=== PATIENT | female | born 1990 | race Caucasian/White ===

== ENCOUNTER 2023-06-14 19:42 | Outpatient (OUT) | payer OTHER, SELFPAY ==
--- NOTE | 2023-06-14 | XR_ITS ---
The [address] [address] Patient Name: MIKAEL LEHMAN MRN: [id number] date: 1990 Sex: F Assigned Patient Location: [facility] Current Patient Location: [facility] Accession/Order Number: [id number] Exam Date: 06/14/2023 20:00 Report Date: 06/14/2023 20:56 At the request of: MICHELLE MAYA Procedure: XR chest 2V TWO-VIEW CHEST RADIOGRAPH, 06/14/2023 8:00 PM EDT: COMPARISON: Chest, 07/19/2022. CLINICAL HISTORY: R05.9 acute cough for a month. Productive cough and wheezing and dyspnea. Patient has been placed on antibiotics/steroids with no relief. FINDINGS: No acute cardiopulmonary disease. No pulmonary edema, pneumothorax, or pleural effusion. Normal heart size. No acute osseous abnormality. XR/XR chest 2V IMPRESSION: No acute abnormality identified. Electronically authenticated by: Emery ESCOBEDO Date: 06/14/2023 20:56
== END 2023-06-14 19:43 | disposition home or self-care (01) ==
PROVIDERS: PCP Family Medicine; Visit Provider Family Medicine
DX: R05.9 Cough, unspecified (principal)
CPT/HCPCS: 71046

== ENCOUNTER 2025-05-08 18:05 | Outpatient (OUT) | payer OTHER, SELFPAY ==
--- NOTE | 2025-05-08 18:13 | XR_ITS ---
The [address] [address] Patient Name: MIKAEL LEHMAN MRN: [id number] date: 1990 Sex: F Assigned Patient Location: [facility] Current Patient Location: [facility] Accession/Order Number: [id number] Exam Date: 05/08/2025 21:41 Report Date: 05/08/2025 21:43 At the request of: ALLI OCAMPO MD Procedure: XR abdomen 1V Single view abdomen INDICATION: Kidney stones COMPARISON: None FINDINGS: There are radiopaque calcific densities both kidneys noted on the right 3 mm size on the left 4 mm and 2 mm in size. Calcific density more medial to left kidney noted 6 mm in size noted this could be within a left renal pelvis, difficult to ascertain on x-ray. Otherwise no additional calcific densities overlying the renal shadows or the psoas muscle. Spina bifida occulta lumbosacral junction. Bilateral pelvic phleboliths. Minimal sclerosis sacroiliac joints greatest right. No diastases noted. XR/XR abdomen 1V IMPRESSION: Bilateral nephrolithiasis. Questionable left calculus projecting within the region of the expected location left renal pelvis. Impression dictated by: Nik Lebron M.D. 05/08/2025 9:43 PM Dictation Location: [place] [address] Electronically authenticated by: [id number] Y Date: 05/08/2025 21:43
== END 2025-05-08 18:06 | disposition home or self-care (01) ==
PROVIDERS: PCP Family Medicine; Visit Provider Urology
DX: N20.0 Calculus of kidney (principal)
CPT/HCPCS: 74018

== ENCOUNTER 2025-05-13 08:53 | Outpatient (OUT) | payer OTHER, SELFPAY ==
--- NOTE | 2025-05-13 08:59 | XR_ITS ---
The [address] [address] Patient Name: MIKAEL LEHMAN MRN: [id number] date: 1990 Sex: F Assigned Patient Location: [facility] Current Patient Location: [facility] Accession/Order Number: [id number] Exam Date: 05/13/2025 11:07 Report Date: 05/13/2025 11:08 At the request of: ALLI OCAMPO MD Procedure: XR abdomen 1V KUB: CLINICAL INFORMATION: Kidney stone follow-up COMPARISON: KUB 05/08/2025 FINDINGS: Bilateral nephrolithiasis once again demonstrated large stone measuring 4 mm involving the inferior pole the left kidney. 6 mm stone over the expected location of the left renal pelvis similar to the prior study. Phleboliths are seen within the pelvis. No free air. No bowel obstruction. XR/XR abdomen 1V IMPRESSION: NO SIGNIFICANT CHANGE IN STONE FINDINGS. Impression dictated by: Ha Jones Jr., D.O. 05/13/2025 11:08 AM Dictation Location: [place] [address] Electronically authenticated by: [id number] Y Date: 05/13/2025 11:08
== END 2025-05-13 08:54 | disposition home or self-care (01) ==
PROVIDERS: PCP Family Medicine; Visit Provider Urology
DX: N13.2 Hydronephrosis with renal and ureteral calculous obstruction (principal)
CPT/HCPCS: 74018

== ENCOUNTER 2025-05-17 08:01 | Outpatient (OUT) | payer OTHER, SELFPAY ==
--- NOTE | 2025-05-17 08:43 | ECG_ITS ---
The [facility] Test Date: 2025-05-17 Pat Name: MIKAEL LEHMAN Department: Room: - Gender: Female Office Bookkeeper: : 1990 Requested By: ALLI OCAMPO Order Number: [id number] Reading MD: ALBERTO LONG M.D. Measurements Intervals [place] Rate: 73 P: 1 ND: 145 QRS: 18 QRSD: 104 T: 14 QT: 357 QTc: 395 Interpretive Statements SINUS RHYTHM Normal ECG No previous ECG available for comparison Electronically Signed On 05-17-2025 20:49:44 EDT by ALBERTO LONG M.D.
[2025-05-17 09:28] LABS: INR 1.14; Partial Thromboplastin Time 28.8 sec (22.3-36.2); Prothrombin Time 11.9 sec (9.0-11.6)
== END 2025-05-17 08:02 | disposition home or self-care (01) ==
LOC: PST 08:04
PROVIDERS: PCP Family Medicine; Visit Provider Urology
DX: Z01.810 Encounter for preprocedural cardiovascular examination (principal); Z01.812 Encounter for preprocedural laboratory examination; N20.1 Calculus of ureter
CPT/HCPCS: 85610; 85730; 93005

== ENCOUNTER 2025-05-23 03:01 | Emergency (ER) | payer OTHER, SELFPAY ==
--- OUTSIDE RECORDS SUMMARY | 2025-04-19 12:00 | XMS_ITS ---
Author Organization [facility] Serv[facility] es Address [address] [place] [address] Care Team Providers Care Pump Servicer Name Role Phone Karlie Flores Primary Care Provider Alejandra Mathews [phone] REASON FOR VISIT 1 month f/u virtual Healow Encounters Encounter Location Date Provider Diagnosis [facility] [address] [place] [address] 04/19/2025 Alejandra Mathews Plan Of Treatment Next Appt Details Provider Name:Karlie payan, 05/23/2025 08:30:00 AM, [address] [place], [address], Progress Notes * MARLEN LEHMANB:1990 (34 yo F)Acc No.[id number]:04/19/2025 Behavioral Health Patient: MIKAEL GONZÁLES Appointment Provider: Mildred Mathews :1990 A ge:34 Y S ex:Female Date:04/19/2025 Address:[address] [place], [place] [id number] Pcp:Karlie Flores Subjective: * Chief Complaints: * 1 . 1 month f/u virtual Healow. * Medical History: Objective: * Vitals: Assessment: Plan: * Treatment: * Images: * Electronic signature of BALAJI Piper on 05/23/2025 at 03:07 AM EDT Sign off status: Pending * Appointment Provider: Mildred Mathews Date: 0 04/19/2025 Generated for Jesus ortega/Diana/Keny on: 0 05/23/2025 03:07 AM EDT
--- OUTSIDE RECORDS SUMMARY | 2025-04-29 04:15 | XMS_ITS ---
Author Organization [facility] Serv[facility] es Address [address] [place] [address] Care Team Providers Care Industrial Laborer Name Role Phone Karlie Flores Primary Care Provider [phone] REASON FOR VISIT MYKEL from Maninder Mathews Encounters Encounter Location Date Provider Diagnosis [facility] [address] [place] [address] 04/29/2025 Karlie Flores Plan Of Treatment Next Appt Details Provider Name:Karlie Sevilla er, 05/23/2025 08:30:00 AM, [facility] [place], [address], Progress Notes * MARLEN LEHMANB:1990 (34 yo F)Acc No.[id number]:04/29/2025 Behavioral Health Patient: MIKAEL GONZÁLES Provider: Coral Flores :1990 A ge:34 Y S ex:Female Date:04/29/2025 Address:[address] [place], [place] [phone] Subjective: * Chief Complaints: * 1 . MYKEL from Maninder Mathews. * Medical History: Objective: * Vitals: Assessment: Plan: * Treatment: * Images: * Electronic signature of BALAJI La on 05/23/2025 at 03:06 AM EDT Sign off status: Pending * Provider: Coral Flores Date: 0 04/29/2025 Generated for Jesus ortega/Diana/Keny on: 0 05/23/2025 03:06 AM EDT
--- OUTSIDE RECORDS SUMMARY | 2025-05-09 23:59 | XMS_ITS | Continuity of Care Document ---
Author Organization [facility] Address [address] [place] [address] Care Team Providers Care Silk Screen Layout Drafter Name Role Phone Sathya Herron Primary Care Physician [phone] Encounter FT_ENRICO [id number] Date(s): 05/09/25 - 05/09/25 [facility] [address] [place] [address] [place] Encounter Diagnosis Kidney stone(Discharge Diagnosis) - 05/09/25 Ureteral stone with hydronephrosis(Discharge Diagnosis) - 05/09/25 Discharge Disposition: Home (Routine DC) Attending Physician: Houston OCAMPO MD Encounter Type: Clinic Allergies, Adverse Reactions, Alerts Substance Criticality Severity Reaction Reaction Severity Status sulfa drugs hives Active Medications acetaminophen-oxycodone 325 mg-5 mg Tab TAKE 1 TABLET BY MOUTH EVERY 8 HOURS NEEDED FOR PAIN FOR 3 DAYS Start Date: 05/09/25 Status: Ordered Repeat number: 1 amphetamine-dextroamphetamine 20 mg Cap-ER TAKE 1 CAPSULE BY MOUTH EVERY DAY IN THE MORNING FOR 30 DAYS Start Date: 05/09/25 Status: Ordered Repeat number: 1 cephalexin 500 mg Cap TAKE 1 CAPSULE BY MOUTH TWICE A DAY FOR 7 DAYS Start Date: 05/09/25 Status: Ordered Repeat number: 1 ClonazePAM 0.5 mg Tab TAKE 1 TABLET BY MOUTH AT BEDTIME DAILY, MAY TAKE 1 DURING DAY NEEDED FOR ANXIETY DIRECTED Start Date: 05/09/25 Status: Ordered Repeat number: 1 ketorolac 10 mg Tab 10 mg = 1 tab(s), Oral, q12hr, Take as needed for pain., X 5 day(s), # 10 tab(s), Refills(s) 0, Pharmacy: [facility]/pharmacy #[id number], 170, cm, 05/09/25 15:08:00 EDT, Height/Length Dosing, 121.4, kg, 05/09/2515:08:00 EDT, Weight Dosing Start Date: 05/09/25 Stop Date: 05/14/25 Status: Ordered Quantity: 10.0 Unit: tab(s) Repeat number: 1 lamotrigine 200 mg Tab TAKE 1 TABLET BY MOUTH EVERY DAY FOR 30 DAYS Start Date: 05/09/25 Status: Ordered Repeat number: 1 Pepcid 20 mg Tab 20 mg = 1 tab(s), Oral, BID, # 60 tab(s), Refills(s) 0 Start Date: 04/11/20 Status: Ordered Quantity: 60.0 Unit: tab(s) Repeat number: 1 propranolol 60 mg oral tablet TAKE 1 TABLET BY MOUTH TWICE A DAY NEEDED FOR 30 DAYS Start Date: 05/09/25 Status: Ordered Repeat number: 1 quetiapine 25 mg Tab TAKE 1 TABLET BY MOUTH EVERY DAY AT BEDTIME FOR 90 DAYS Start Date: 05/09/25 Status: Ordered Repeat number: 1 ropinirole 4 mg oral tablet TAKE 2 TABLETS BY MOUTH DAILY AT BEDTIME Start Date: 05/09/25 Status: Ordered Repeat number: 1 tamsulosin 0.4 mg Cap TAKE 1 CAPSULE BY MOUTH EVERY DAY FOR 7 DAYS Start Date: 05/09/25 Status: Ordered Repeat number: 1 tirzepatide SubCutaneous, qWeek, Refills(s) 0 Start Date: 05/09/25 Status: Ordered Repeat number: 1 Problem List Condition Confirmation Course Effective Dates Status H ealth Status Informant Generalised anxiety disorder Confirmed Active Mild recurrent major depression Confirmed Active Ureteral stone with hydronephrosis Confirmed Active Procedures Procedure Date Related Diagnosis Body Site Status delivery 02/22/20 Complet ed Lithotripsy 10/03/16 Completed Urethral stent 10/03/16 Completed Social History Social History Type Response Smoking Status Never (less than 100 in lifetime);Never entered on: 06/18/20 Sex Female Sex Representation Female (finding) Hospital Discharge Instructions Patient Education 05/09/2025 15:44:25 Kidney Stones Kidney Stones Kidney stones are solid, rock-like deposits that form inside of the kidneys. The kidneys are a pairof organs that make urine. A kidney stone may form in a kidney and move into other parts of the urinary tract, including the tubes that connect the kidneys to the bladder (ureters), the bladder, and the tube that carries urine out of the body (urethra). As the stone moves through these areas, it can cause intense pain and block the flow of urine. Kidney stones are created when high levels of certain minerals are found in the urine. The stones are usually passed out of the body through urination, but in some cases, medical treatment may be needed to remove them. What are the causes? Kidney stones may be caused by: ??? A condition in which certain glands produce too much parathyroid hormone (primary hyperparathyroidism), which causes too much calcium buildup in the blood. ??? A buildup of uric acid crystals in the bladder (hyperuricosuria). Uric acid is a chemical that the body produces when you eat certain foods. It usually leaves the body in the urine. ??? Narrowing (stricture) of one or both of the ureters. ??? A kidney blockage that is present at (congenital obstruction). ??? Past surgery on the kidney or the ureters. What increases the risk? The following factors may make you more likely to develop this condition: ??? Having had a kidney stone in the past. ??? Having a family history of kidney stones. ??? Not drinking enough water. ??? Eating a diet that is high in protein, salt (sodium), or sugar. ??? Being overweight or obese. What are the signs or symptoms? Symptoms of a kidney stone may include: ??? Pain in the side of the abdomen, right below the ribs (flank pain). Pain usually spreads (radiates) to the groin. ??? Needing to urinate often or urgently. ??? Painful urination. ??? Blood in the urine (hematuria). ??? Nausea. ??? Vomiting. ??? Fever and chills. How is this diagnosed? This condition may be diagnosed based on: ??? Your symptoms and medical history. ??? A physical exam. ??? Blood tests. ??? Urine tests. These may be done before and after the stone passes out of your body through urination. ??? Imaging tests, such as a CT scan, abdominal X-ray, or ultrasound. ??? A procedure to examine the inside of the bladder (cystoscopy). How is this treated? Treatment for kidney stones depends on the size, location, and makeup of the stones. Kidney stones will often pass out of the body through urination. You may need to: ??? Increase your fluid intake to help pass the stone. In some cases, you may be given fluids through an IV and may need to be monitored in the hospital. ??? Take medicine for pain. ??? Make changes in your diet to help prevent kidney stones from coming back. Sometimes, procedures are needed to remove a kidney stone. This may involve: ??? A procedure to break up kidney stones using: ??? A focused beam of light (laser therapy). ??? Shock waves (extracorporeal shock wave lithotripsy). ??? Surgery to remove kidney stones. This may be needed if you have severe pain or have stones thatblock your urinary tract. Follow these instructions at home: Medicines ??? Take hyrr-lzd-kfkoqsc and prescription medicines only as told by your health care provider. ??? Ask your health care provider if the medicine prescribed to you requires you to avoid driving or using heavy machinery. Eating and drinking ??? Drink enough fluid to keep your urine pale yellow. You may be instructed to drink at least 8???10 glasses of water each day. This will help you pass the kidney stone. ??? If directed, change your diet. This may include: ??? Limiting how much sodium you eat. ??? Eating more fruits and vegetables. ??? Limiting how much animal protein you eat. Animal proteins include red meat, poultry, fish, and eggs. ??? Eating a normal amount of calcium (1,000???1,300 mg per day). ??? Follow instructions from your health care provider about eating or drinking restrictions. General instructions ??? Collect urine samples as told by your health care provider. You may need to collect a urine sample: ??? 24 hours after you pass the stone. ??? 8???12 weeks after you pass the kidney stone, and every 6???12 months after that. ??? Strain your urine every time you urinate, for as long as directed. Use the strainer that your health care provider recommends. ??? Do not throw out the kidney stone after passing it. Keep the stone so it can be tested by your health care provider. Testing the makeup of your kidney stone may help prevent you from getting kidney stones in the future. ??? Keep all follow-up visits. You may need follow-up X-rays or ultrasounds to make sure that your stone has passed. How is this prevented? To prevent another kidney stone: ??? Drink enough fluid to keep your urine pale yellow. This is the best way to prevent kidney stones. ??? Eat a healthy diet. Follow recommendations from your health care provider about foods to avoid.Recommendations vary depending on the type of kidney stone that you have. You may be instructed to eat a low-protein diet. ??? Maintain a healthy weight. Where to find more information ??? National Kidney Foundation (NKF): www.kidney.org ??? [employer] (UCF): www.urologyhealth.org Contact a health care provider if: ??? You have pain that gets worse or does not get better with medicine. Get help right away if: ??? You have a fever or chills. ??? You develop severe pain. ??? You develop new abdominal pain. ??? You faint. ??? You are unable to urinate. Summary ??? Kidney stones are solid, rock-like deposits that form inside of the kidneys. ??? Kidney stones can cause nausea, vomiting, blood in the urine, abdominal pain, and the urge to urinate often. ??? Treatment for kidney stones depends on the size, location, and makeup of the stones. Kidney stones will often pass out of the body through urination. ??? Kidney stones can be prevented by drinking enough fluids, eating a healthy diet, and maintaining a healthy weight. This information is not intended to replace advice given to you by your health care provider. Make sure you discuss any questions you have with your health care provider. Document Revised: 12/29/2022 Document Reviewed: 12/29/2022 Elsevier Patient Education ?? 2023 [employer] Follow Up Care 05/07/2025 09:29:51 With:DAMARIS AHMADI, JORGE Ramon Address: [facility] [address] , [place] [address]- When: Unknown Patient Care team information Care Team Personnel Name: Sathya Herron DO Position: FT Physician Member Role: Primary Care Physician Address: [address] [place] [id number] Telecom: Care Team Related Persons Name: DEJUAN LEHMAN Name: BETTE LEHMAN Insurance Providers Guarantor name: Health Plan Information #: 1 Payer: NA Payer Identifier: [id number] Member Number: [id number] Group Number: [id number] Subscriber Identifier: [id number] Relationship to Subscriber: spouse Coverage Type: PRIVATE HEALTH INSURANCE Coverage Verification Date: 25 Telecom: NA Address:
--- OUTSIDE RECORDS SUMMARY | 2025-05-23 03:05 | XMS_ITS | Continuity of Care Document ---
Author Name [facility] Organization [facility] Care Team Providers Care Access Nurse Name Role Phone DOD-VA Unavailable Unavailable Problems Combined list of problems from Department of Defense and Veterans Affairs facilities. It does not include entries that were removed or entered in error. Problem Status Onset Date Problem Type Date of Resolution Comments Source skin: a rash [as Sx] Active Condition Seborrhea vs contact dermatitis. Recommend trial of good bid cleaning, thin application of oil massaged into area and lotioning for one week. If no improvement, bid triamcinolone x 1wk. If no improvement or worsening RTC. [facility] MENINGITIS BACTERIAL Active Condition Not disease jus t vaccination again. DoD Vaccines Prophylactic Need Against Viral Diseases Inactive Condition Discussed vaccinations and recommend menactra and HPV if patient wants to be vaccinated. Mom to keep copy of shot record here to take with her to next home. DoD visit for: administrative purpose Active Condition DoD CARPAL TUNNEL SYNDROME Active Condition Very mild with +phalen test, R>L. No nerve decompression symptoms or atrophy of thenar/hypothena r prominences. Normal hand strength. No evidence of chronic medial or ulnar nerve compression. Discussed diagnosis and underlying etiology with patient and mother. Reviewed importance of correct hand/wrist positioning at computer/text messaging. recommend wrist splint to right hand while sleeping for next one month to see if improvment. Will refer to ortho if no improvement or worsening of symptoms. [facility] ESOPHAGEAL REFLUX Active Condition Im proved. Continue prilosec daily and avoidance of trigger foods. DoD severe menstrual pain (dysmenorrhea) Active Condition Trial of loestrin, d/c silvina. Discussed possibility of PMDD symptoms and ?benefit from low dose SSRI. Would consider thyroid screening - but patient refuses at this time. F/U in late January prior to move or sooner if concerns. DoD Vaccines Prophylactic Need Against Influenza Inactive Condition [facility] abdominal pain Active Condition Pain continues to be most consistent with reflux - given improvement with prilosec. Recommend continued use of the PPI, taking daily, continue pain log, and f/u with me in one month. DoD visit for: examination for sports competition Inactive Condition Healthy O K for gymnastic, will refer to see Ortho and asked Dad to schedule child to be seen by LINOTYPIST for evaluation of possible ovarian cysts. DoD CONJUNCTIVITIS ACUTE BACTERIAL Inactive Condition Inst. Adrian and her mother in use of Polytrim eye drops, care and cleaning of eyes and infection control measures; advised to replace eye liner and mascara. DoD SUPERFICIAL INJURY - ABRASION OF CORNEA Inactive Condition DoD Allergies, Adverse Reactions, Alerts Combined list of allergies from Department of Defense and Veterans Affairs facilities. It does not include entries that were removed or entered in error. Substance Category Reaction Severity Reaction type Status Date Reported Comments Source No Known Allergies Drug allergy (disorder) active 01/20/2008 LIDA Villarreal Immunizations Combined list of available immunizations from the Department of Defense and Veterans Affairs facilities. Immunization Series Date Given Administered By Site Reaction Lot Number CVX Code Drug Director Content Marketing Status Comments Source human papilloma virus vaccine, quadrivalent 1 2007 MUSTAPHA PABLO [id number] Merck (MSD) complet ed human papilloma virus vaccine, quadrival ent DoD meningococcal polysaccharid e (groups A, C, Y and W-135) diphtheria toxoid conjugate vaccine (MCV4P) 1 2007 MUSTAPHA PABLO [id number] Sanofi Pasteur (PMC) complet ed meningoco ccal polysacch aride (groups A, C, Y and W-135) diphtheri a toxoid conjugate vaccine (MCV4P) DoD influenza virus vaccine, live, attenuated, for intranasal use 1 2006 LETTY HOLGUIN [id number] [employer], [employer]. (MED) complet ed influenza virus vaccine, live, attenuate d, for intranasa l use DoD Encounters Combined list of: 1) Encounters from Department of Veterans Affairs facilities going backup to the last 18 months, not all VA inpatient encounters are included; 2) Encounters from the Department of Defense facilities going backup to 280 months. Location Location Details Encounter Type Encounter Number Reason For Visit Attending Provider ADM Date DC Date Status Disposition Source LIDA Lovell([facility] ) OUTPATIENT [id number] corneal abrasio n MICHELLE OCONNOR 05/17 Released w/o Limitations LIDA Hsieh([facility]) Marco A [facility] LIDA Brooke([facility]) OUTPATIENT [id number] f/u corneal abrasio n chelsea LESTERASHERALBERT NAYAK A 05/19 Released w/o Limitations Marco A [facility] LIDA Lopes([facility]) Marco A [facility] LIDA Brooke([facility]) OUTPATIENT [id number] possibl e pink eye NUVIA RODAS 09/22 Released w/o Limitations Marco A [facility] LIDA Lopes([facility]) LIDA Lovell([facility]) OUTPATIENT [id number] SPORTS PHYSICA PREET BRAN 05/16 Released w/o Limitations Marco A [facility] LIDA Lopes([facility]) LIDA Lovell([facility]) OUTPATIENT [id number] Nausea dizzine ss x 3 days MELENDEZ, LAST BANIAN 08/10 Released w/o Limitations Marco A [facility] LIDA Lopes([facility] LIDA Lovell([facility] Immuniz[facility] ions) OUTPATIENT [id number] FLU MIST LETTY HOLGUIN 08/10 Released w/o Limitations Marco A [facility] LIDA Lopes([facility] Immun[facility] ations) LIDA Lovell([facility]) OUTPATIENT [id number] Per provide r f/u on stomach problem s MELENDEZ, LAST PURA 09/13 Released w/o Limitations Marco A [facility] LIDA Lopes([facility]) Marco A [facility] LIDA Brooke([facility]) OUTPATIENT [id number] f/u for medicat ion MELENDEZ, LAST BAINAN 11/28 Released w/o Limitations Marco A [facility] LIDA Lopes([facility]) Marco A [facility] LIDA Brooke([facility]) OUTPATIENT [id number] F/U PER PROVIDE R STOMACH PROBLEM S LAST MELENDEZ PURA 12/31 Released w/o Limitations LIDA Hsieh([facility]) LIDA Lovell([facility]) TELE CONSULT [id number] Rash behind left ear x 3 days. LETTY HOLGUIN Mildred 01/19 LIDA Hsieh([facility]) LIDA Lovell([facility]) OUTPATIENT [id number] rash behind ear x 1 month LAST MELENDEZAN 01/22 Released w/o Limitations LIDA Hsieh([facility]) Procedures Combined list of: 1) Procedures from Department of Veterans Affairs facilities going back up to thelast 18 months, not all VA non-surgical procedures are included; 2) All procedures from the Department of Defense facilities. Procedure Procedure Type Code Date Perfomer Comments [facility] e MENINGOCOCCAL CONJUGATE VACCINE, SEROGROUPS A, C, W, Y, QUADRIVALENT, DIPHTHERIA TOXOID CARRIER (MENACWY-D) OR AXA417 CARRIER (MENACWY-CRM), FOR INTRAMUSCULAR USE 8 [facility] IMMUNIZATION ADMINISTRATION BY INTRANASAL OR ORAL ROUTE; 1 VACCINE (SINGLE OR COMBINATION VACCINE/TOXOID) 7 [facility] OPHTHALMOLOGICAL SERVICES: MEDICAL EXAMINATION AND EVALUATION, WITH INITIATION OR CONTINUATION OF DIAGNOSTIC AND TREATMENT PROGRAM; INTERMEDIATE, ESTABLISHED PATIENT 5 [facility] UNLISTED OPHTHALMOLOGICAL SERVICE OR PROCEDURE 5 [facility] COLLECTION OF VENOUS BLOOD BY VENIPUNCTURE 4 DoD SPECIAL REPORTS SUCH INSURANCE FORMS, MORE THAN THE INFORMATION CONVEYED IN THE USUAL MEDICAL COMMUNICATIONS OR STANDARD REPORTING FORM 4 DoD NONINVASIVE EAR OR PULSE OXIMETRY FOR OXYGEN SATURATION; SINGLE DETERMINATION 3 DoD THERAPEUTIC, PROPHYLACTIC OR DIAGNOSTIC INJECTION (SPECIFY MATERIAL INJECTED); SUBCUTANEOUS OR INTRAMUSCULAR 1 DoD SKIN TEST; TUBERCULOSIS, INTRADERMAL 0 DoD Meningococcal Conjugate Vaccine Tetravalent (A C Y W-135) 8 LAST MELENDEZ DoD Immunization Administration Each Additional Vaccine 8 LAST MELENDEZ DoD Human Papilloma Virus Vaccine, Quadrivalent Human Papilloma Virus Vaccine, Quadrivalent 54278 8 MELENDEZ, GASTON PURA [facility] Supervised Injection Intramuscular Supervised Injection Intramuscular 07893 8 MELENDEZ, LAST NEVES [facility] Immunization Administration One Vaccine Immunization Administration One Vaccine 55949 8 MELENDEZ, [facility] NEV[facility] Influenza Virus Vaccine Live Intranasal 7 LETTY HOLGUIN [facility] Ophthalmological Prior Patient Start Intermediate Level Care Ophthalmological Prior Patient Start Intermediate Level Care [phone] ALBERT STERLING [facility] Ophthalmological Prior Patient Start Intermediate Level Care Ophthalmological Prior Patient Start Intermediate Level Care [id number] [phone] MICHELLE JOHNSON [facility] Ophthalmological Procedures Ophthalmological Procedures [id number] 5 MICHELLE JOHNSON [facility] Social History Combined list of available smoking, tobacco, and other social history from Department of Defense and Veterans Affairs facilities. Social History Type Response Date Comment Sour e This section is an empty social history section. DoD
--- OUTSIDE RECORDS SUMMARY | 2025-05-23 03:06 | XMS_ITS | Encounter Summary ---
Author Organization [facility] Address [address] [place] [address] Care Team Providers Care Autism Specialist Name Role Phone Sathya Herron MD Primary Care Provider [phone] Encounter Details Date Type Department Care Team (Late st Contact Info) Description 06/17/2023 External Result Encounter [facility] External Department Unsolicited Horacio Ferro, DO [address] [place] [address] Social History Tobacco Use Types Packs/Day Years Used Date Smoking Tobacco: Never Smokeless Tobacco: Never Alcohol Use Standard Drinks/Week Comments Yes 1 (1 standard drink = 0.6 oz pure alcohol) caffeine: 1-2 cups per day coffee, soda Comments Unknown Sex and Gender Information Value Date Recorded Sex Assigned at Not on file Legal Sex Female 7:05 PM EDT Gender Identity Not on file Sexual Orientation Not on file documented as of this encounter Plan of Treatment Not on file documented as of this encounter Procedures Procedure Name Priority Date/Time Associated Diagnosis Comments CT SINUS WO 06/17/2023 3:16 PM EDT documented in this encounter Results * CT SINUS WO IV CONTRAST (06/17/2023 3:16 PM EDT) Anatomical Region Laterality Modality Head, Neck Computed Tomogra phy 06/17/2023 3:16 PM EDT Impressions 09/07/2023 9:27 AM EST There is partial opacification of the mid right ethmoid air cells adjacent to the wall of the right orbit medially. The paranasal sinuses are otherwise relatively well aerated. Impression dictated by: Darion Randle M.D.06/17/2023 3:29 PM Dictation Location: [place] [address] Transcribed By: [facility] 06/17/23 1529 Dictated By: Darion Randle II, MD 06/17/23 1516 Signed By: <Electronically signed by Darion Randle II, MD in [place]> 06/17/23 1529 Narrative 09/07/2023 9:27 AM [facility] [place] [address] [place] [address] CT Scan Report Signed Patient: Kaylah Mario MR#: [id number] 41 : 1990 Acct:[id number] Age/Sex: 32 / F ADM Date: 06/17/23 Loc: CT Room: Type: [facility] Attending Dr: Horacio Ferro DO Copies to: Horacio Ferro DO Ordering Provider: Horacio Ferro DO Date of Service: 06/17/23 CT/CT sinus wo con: J32.9 CT sinus wo con 06/17/2023 11:58 AM SIGN AND SYMPTOMS: Chronic sinusitis TECHNIQUE: Multidetector CT axial slices of the sinuses were obtained without IV contrast. Coronal reformats were generated and reviewed to further define anatomy and possible pathology. CT was performed with one or more of the following dose reduction techniques: Automated exposure control, adjustment of the mA and/or kV according to patient size, or use of iterative reconstruction technique. COMPARISON: None. Turbinates: Within normal limits. Septum: Within normal limits. Sinuses and drainage pathways: Right: Frontal sinus and frontal recess: Well aerated. Maxillary sinus: Well aerated. Ethmoid sinuses: Well aerated. Ostiomeatal complex: Patent. Spehnoid sinus: Well aerated. Sphenoethmoidal recess: Well aerated. Left: Frontal sinus and frontal recess: Well aerated. Maxillary sinus: Well aerated. Ethmoid sinuses: There is partial opacification of the mid right ethmoid air cells adjacent to the wall of the right orbit medially. Ostiomeatal complex: Patent. Sphenoid sinus: Well aerated. Sphenoethmoidal recess: Well aerated. Anatomic variations: Significant variations. Orbits: Within normal limits. Anterior cranial fossa: No acute findings. CT/CT sinus wo con Procedure Note Radiology, Radiologist, - 09/07/2023 [facility] [place] [address] [place] [address] CT Scan Report Signed Patient: Kaylah Mario CMR#: [id number] 41 : 1990Acct:[id number] Age/Sex: FADM Date: 06/17/23 Loc: CT Room:Type: [facility] Attending Dr: Horacio Ferro DO Copies to: Horacio Ferro DO Ordering Provider: Horacio Ferro DO Date of Service: 06/17/23 CT/CT sinus wo con: J32.9 CT sinus wo con 06/17/2023 11:58 AM SIGN AND SYMPTOMS: Chronic sinusitis TECHNIQUE: Multidetector CT axial slices of the sinuses were obtainedwithout IV contrast. Coronal reformats were generated and reviewed to further define anatomy andpossible pathology. CT was performed with one or more of the following dose reduction techniques:Automated exposure control, adjustment of the mA and/or kV according to patient size, or use ofiterative reconstruction technique. COMPARISON: None. Turbinates: Within normal limits. Septum: Within normal limits. Sinuses and drainage pathways: Right: Frontal sinus and frontal recess: Well aerated. Maxillary sinus: Well aerated. Ethmoid sinuses: Well aerated. Ostiomeatal complex: Patent. Spehnoid sinus: Well aerated. Sphenoethmoidal recess: Well aerated. Left: Frontal sinus and frontal recess: Well aerated. Maxillary sinus: Well aerated. Ethmoid sinuses: There is partial opacification of the mid right ethmoidair cells adjacent to the wall of the right orbit medially. Ostiomeatal complex: Patent. Sphenoid sinus: Well aerated. Sphenoethmoidal recess: Well aerated. Anatomic variations: Significant variations. Orbits: Within normal limits. Anterior cranial fossa: No acute findings. CT/CT sinus wo con IMPRESSION: There is partial opacification of the mid right ethmoid air cellsadjacent to the wall of the right orbit medially. The paranasal sinuses are otherwise relatively well aerated. Impression dictated by: Darion Randle M.D.06/17/2023 3:29 PM Dictation Location: [place] [address] Transcribed By: [facility] 06/17/23 1529 Dictated By: Darion Randle II, MD 06/17/23 1516 Signed By: <Electronically signed by Darion Randle II, MD inOV> 06/17/23 1529 Horacio Ferro DO IMG CT PROCEDURES Final Res ult documented in this encounter Visit Diagnoses Not on filedocumented in this encounter Care Teams Autism Specialist Relationship Specialty Start Date End Date Sathya Herron MD [address] [place] [address] [place] [address] PCP - General Family Medicine 06/10/23 documented as of this encounter
--- OUTSIDE RECORDS SUMMARY | 2025-05-23 03:06 | XMS_ITS | Encounter Summary ---
Author Organization [facility] Address [address] [place] [address] Care Team Providers Care Plating Foreman Name Role Phone Chacorta Joseph DO Primary Care Provider [phone] Sathya Herron DO Primary Care Provider Source Comments In the event this information is protected by the Federal Confidentiality of Alcohol and Drug AbusePatient Records regulations: The Federal rules restrict any use of the information to criminally investigate or prosecute any alcohol or drug abuse patient.[facility] Encounter Details Date Type Department Care Team (Late st Contact Info) Description 05/11/2023 Patient Msg Allergy [address] [id number] Mariana Espino MD [address] [place], [place] [phone] lab results Social History Tobacco Use Types Packs/Day Years Used Date Smoking Tobacco: Never Smokeless Tobacco: Never Alcohol Use Standard Drinks/Week Comments Yes 0 (1 standard drink = 0.6 oz pur e alcohol) 1 per week PHQ-2 Answer Date Recorded PHQ-2 score 2 09/21/2019 Area Deprivation Index Answer Date Dajuan rded National Score (1-100), lower number is lower ri sk 73 04/28/2023 State Score (1-10), lower number is lower risk 6 04/28/2023 Data from: https://www.neighborhoodatlas.medicine.[facility]/. Last address used for calculation [address] [place] [address] [address] 04/28/2023 Comments No Sex and Gender Information Value Date Recorded Sex Assigned at Not on file Legal Sex Female 1:13 PM EST Gender Identity Not on file Sexual Orientation Not on file Occupation Industry Job Start Date Job End Date U Not on file Not on file Not on file documented as of this encounter Functional Status * Are you deaf or do you have serious difficulty hearing? Answer Date of Assessment Author No 11/26/2014 4:37 PM Amanda Jackson LPN * Are you blind or do you have serious difficulty seeing, even when wearing glasses? Answer Date of Assessment Author No 11/26/2014 4:37 PM Amanda Jackson LPN * Do you have serious difficulty walking or climbing stairs? Answer Date of Assessment Author No 11/26/2014 4:37 PM Amanda Jackson LPN * Do you have difficulty dressing or bathing? Answer Date of Assessment Author No 11/26/2014 4:37 PM Amanda Jackson LPN * Because of a physical, mental, or emotional condition, do you have difficulty doing errands alone such as visiting a doctor's office or shopping? Answer Date of Assessment Author No 11/26/2014 4:37 PM Amanda Jackson LPN documented as of this encounter Mental Status * Because of a physical, mental, or emotional condition, do you have serious difficulty concentrating, remembering, or making decisions? Answer Entry Date Author No 11/26/2014 4:37 PM Amanda Jackson LPN documented in this encounter Plan of Treatment Not on file documented as of this encounter Visit Diagnoses Not on filedocumented in this encounter Care Teams Plating Foreman Relationship Specialty Start Date End Date Chacorta Joseph DO [address] [place] [address] PCP - General Internal Medicine 10/22/13 05/08/24 Sathya Herron DO [address] [place] [address] PCP - General Family Medicine 05/09/24 documented as of this encounter
--- OUTSIDE RECORDS SUMMARY | 2025-05-23 03:06 | XMS_ITS | Encounter Summary ---
Author Organization [facility] Address [address] [place] [address] Care Team Providers Care Pavilion Cutter Name Role Phone Sathya Herron MD Primary Care Provider [phone] Encounter Details Date Type Department Care Team (Late st Contact Info) Description 06/14/2023 Abstract [facility] [address] [place] [address] Horacio Ferro DO [address] [facility] [place] [address] Social History Tobacco Use Types Packs/Day Years Used Date Smoking Tobacco: Never Smokeless Tobacco: Never Tobacco Cessation:Counseling Given: Not Answered Alcohol Use Standard Drinks/Week Comments Yes 1 [...] on filedocumented in this encounter Care Teams Pavilion Cutter Relationship Specialty Start Date End Date Sathya Herron MD [address] [place], [place] [address] PCP - General Family Medicine 06/10/23 documented as of this encounter
--- OUTSIDE RECORDS SUMMARY | 2025-05-23 03:06 | XMS_ITS | Clinical Summary ---
Author Organization [facility] Address [address] [place] [address] Care Team Providers Care Package Center Supervisor Name Role Phone Zenonbeto Sathya Levy DO Primary Care Provider [phone] Allergies Active Allergy Reactions Criticality Noted Date Comments Sulfamethoxazole-Trimet hoprim Rash 09/13/2019 Rash, throat felt tight Nickel Rash Low 10/15/2014 Sulfa (Sulfonamide Antibiotics) Rash,Angioedema High 10/05/2019 Medications famotidine (PEPCID) 20 mg tablet Take 20 mg by mouth twice daily. 11 06/18/2019 Active diphenhydrAMINE (BENADRYL ALLERGY) 25 mg tablet Take 25 mg by mouth every 6 hours as needed. Active amoxicillin-cla vulanic acid (AUGMENTIN) 875-125 mg per tablet Take 1 tablet by mouth twice daily. 04/12/2023 Active DULoxetine (CYMBALTA) 20 mg capsule Take 1 capsule by mouth every afternoon. 02/03/2023 Active ferrous sulfate 325 mg (65 mg iron) tablet Take 325 mg by mouth once daily. 02/23/2020 Active VYVANSE 70 mg capsule Take 70 mg by mouth once daily. 04/12/2023 Active rOPINIRole (REQUIP) 4 mg tablet Take 2 tablets by mouth daily at bedtime. 03/09/2023 Active clonazePAM (KLONOPIN) 0.5 mg tablet TAKE 1 TABLET EVERYDAY AT BEDTIME *MAY TAKE 1 TABLET DURING DAY NEEDED FOR ANXIETY DIRECTED* Active lamoTRIgine (LAMICTAL) 200 mg tablet Take 200 mg by mouth once daily. 05/08/2024 Active QUEtiapine (SEROQUEL) 25 mg tablet Take 50 mg by mouth once daily. 10/27/2023 Active propranolol (INDERAL) 40 mg tablet Take 20 mg by mouth two times a day. 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 Loose bowel movement 10/15/2014 Palpitation 10/15/2014 Hx of ovarian cyst Immunizations Immunization Administration Dates Next Due influenza (IIV3) vaccine, ag e 6 mo - 64 yr, trivalent (AFLURIA, FLULAVAL, FLUVIRIN, FLUZONE) 10/15/2014 pneumococcal polysaccharide (PPV23) vaccine, 23 valent (PNEUMOVAX 23) 04/28/2023 Family History Medical History Relation Comments None Father Hypertension Maternal Grandfather paresthesia Maternal Grandfather burning and numbness Heart Maternal Grandmother Hypertension Maternal Grandmother Lipids Maternal Grandmother Stroke Maternal Grandmother migraines Mother hyperthyroidism Paternal Grandfather Hypertension Paternal Grandmother migraines Sister Relation Status Comments Father Maternal Grandfather Maternal Grandmother Mother Paternal Grandfather Paternal Grandmother Sister Social History Tobacco Use Types Packs/Day Years Used Date Smoking Tobacco: Never Smokeless Tobacco: Never Tobacco Cessation:Counseling Given: Not Answered Alcohol Use Standard Drinks/Week Comments Yes 0 (1 standard drink = 0.6 oz pur e alcohol) 1 per week PHQ-2 Answer Date Recorded PHQ-2 score 2 09/21/2019 Area Deprivation Index Answer Date Dajuan rded National Score (1-100), lower number is lower ri sk 73 04/28/2023 State Score (1-10), lower number is lower risk 6 04/28/2023 Data from: https://www.neighborhoodatlas.medicine[facility].edu/. Last address used for calculation [address] [place] [address] [address] 04/28/2023 Comments No Sex and Gender Information Value Date Recorded Sex Assigned at Not on file Legal Sex Female 1:13 PM EST Gender Identity Not on file Sexual Orientation Not on file Occupation Industry Job Start Date Job End Date U Not on file Not on file Not on file Last Filed Vital Signs Vital Sign Reading Time Taken Comments Blood Pressure 109/76 04/28/2023 11:41 AM EDT Pulse 110 04/28/2023 11:41 AM EDT Temperature 36.6 C (97.9 F) 09/21/2019 1:13 PM EST Respiratory Rate - - Oxygen Saturation 97% 04/28/2023 11:41 AM EDT Inhaled Oxygen Concentration - - Weight 121.1 kg (267 lb) 04/28/2023 11:41 AM EDT Height 168 cm (5' 6.14 ) 09/21/2019 1:13 PM EST Body Mass Index 42.91 09/21/2019 1:13 PM EST Plan of Treatment Health Maintenance Due Date Last Done Comments HPV Vaccine (2 - 3-dose series) 02/20/2008 Anxiety Screening 2009 Depression Screening 2009 HIV Screening 2009 Hepatitis C Screening 2009 Hepatitis B Vaccine (1 of 3 - 19+ 3-dose series) 2010 Cervical Cancer Screening 10/01/2017 10/01/2014 Influenza Vaccine (#1) 2025 3, 06/13/2019, 06/04/2019, Additional history exists DTaP,Tdap,Td Vaccine (2 - Td or Tdap) 01/07/2030 01/08/2020 Insurance Care Teams Package Center Supervisor Relationship Specialty Start Date End Date Sathya Herron DO [address] [place] [address] PCP - General Family Medicine 05/09/24
[2025-05-23 03:07] VITALS: BP 134/84; PULSE 72; BMI 40.7
--- OUTSIDE RECORDS SUMMARY | 2025-05-23 03:07 | XMS_ITS | Encounter Summary ---
Author Organization [facility] Address [address] [place] [address] Care Team Providers Care Roving Teller Name Role Phone Chacorta Joseph DO Primary Care Provider [phone] Sathya Herron DO Primary Care Provider [phone] Source Comments In the event this information is protected by the Federal Confidentiality of Alcohol and Drug AbusePatient Records regulations: The Federal rules restrict any use of the information to criminally investigate or prosecute any alcohol or drug abuse patient.[facility] Reason for Visit * Reason Comments PSG Check In (Adult) Encounter Details Date Type Department Care Team (Late st Contact Info) Description 02/19/2014 Abstract Neurology [address] [place] [address] Main, Sleep Center [address] [id number] PSG Check In (Adult) Social History Tobacco Use Types Packs/Day Years Used Date Smoking Tobacco: Never Smokeless Tobacco: Never Alcohol Use Standard Drinks/Week Comments Yes 0 (1 standard drink = 0.6 oz pur e alcohol) 1 per week Comments Unknown Sex and Gender Information Value [...] hearing? Answer Date of Assessment Author No 01/07/2014 10:58 AM Amanda Brown RN * Are you blind or do you have serious difficulty seeing, even when wearing glasses? Answer Date of Assessment Author No 01/07/2014 10:58 AM Amanda Brown RN * Do you have serious difficulty walking or climbing stairs? Answer Date of Assessment Author Yes 01/07/2014 10:58 AM Amanda Brown RN * Do you have difficulty dressing or bathing? Answer Date of Assessment Author No 01/07/2014 10:58 AM Amanda Brown RN * Because of a physical, mental, or emotional condition, do you have difficulty doing errands alone such as visiting a doctor's office or shopping? Answer Date of Assessment Author No 01/07/2014 10:58 AM Amanda Brown RN documented as of this encounter Mental Status * Because of a physical, mental, or emotional condition, do you have serious difficulty concentrating, remembering, or making decisions? Answer Entry Date Author Yes 01/07/2014 10:58 AM Amanda Brown RN documented in this encounter Plan of Treatment Not on file documented as of this encounter Visit Diagnoses Not on filedocumented in this encounter Care Teams Roving Teller Relationship Specialty Start Date End Date Chacorta Joseph DO [address] [place] [address] PCP - General Internal Medicine 10/22/13 05/08/24 Sathya Herron DO [address] [place] [address] PCP - General Family Medicine 05/09/24 documented as of this encounter
--- OUTSIDE RECORDS SUMMARY | 2025-05-23 03:07 | XMS_ITS | Encounter Summary ---
Author Organization [facility] Address [address] [place] [address] Care Team Providers Care Almond Paste Mixer Name Role Phone Chacorta Joseph DO Primary Care Provider [phone] Sathya Herron DO Primary Care Provider [phone] Source Comments In the event this information is protected by the Federal Confidentiality of Alcohol and Drug AbusePatient Records regulations: The Federal rules restrict any use of the information to criminally investigate or prosecute any alcohol or drug abuse patient.[facility] Encounter Details Date Type Department Care Team (Late st Contact Info) Description 09/27/2019 Patient Msg Rheumatology [address] [id number] [place] [address] [place] [address], [address] [place] [address] CRP question Social History Tobacco Use Types Packs/Day Years Used Date Smoking Tobacco: Never Smokeless Tobacco: Never Alcohol Use Standard Drinks/Week Comments Yes 0 (1 standard drink = 0.6 oz pur e alcohol) 1 per week PHQ-2 Answer Date Recorded PHQ-2 score 2 09/21/2019 Comments No Sex and Gender Information Value [...] of Assessment Author No 11/26/2014 4:37 PM ALEJANDRO Amanda Kenney, COMPREHENSIVE ADVISOR * Are you blind or do you have serious difficulty seeing, even when wearing glasses? Answer Date of Assessment Author No 11/26/2014 4:37 PM EST Amanda Kenney ry, COMPREHENSIVE ADVISOR * Do you have serious difficulty walking or climbing stairs? Answer Date of Assessment Author No 11/26/2014 4:37 PM ALEJANDRO Amanda Kenney ry, COMPREHENSIVE ADVISOR * Do you have difficulty dressing or bathing? Answer Date of Assessment Author No 11/26/2014 4:37 PM ALEJANDRO Amanda Kenney, COMPREHENSIVE ADVISOR * Because of a physical, mental, or emotional condition, do you have difficulty doing errands alone such as visiting a doctor's office or shopping? Answer Date of Assessment Author No 11/26/2014 4:37 PM ALEJANDRO Amanda Kenney ry, COMPREHENSIVE ADVISOR documented as of this encounter Mental Status * Because of a physical, mental, or emotional condition, do you have serious difficulty concentrating, remembering, or making decisions? Answer Entry Date Author No 11/26/2014 4:37 PM ALEJANDRO Amanda Kenney, COMPREHENSIVE ADVISOR documented in this encounter Plan of Treatment Not on file documented as of this encounter Visit Diagnoses Not on filedocumented in this encounter Care Teams Almond Paste Mixer Relationship Specialty Start Date End Date Chacorta Joseph DO [address] [facility] [address] [place] [address] PCP - General Internal Medicine 10/22/13 05/08/24 Sathya Herron DO [address] [place] [address] PCP - General Family Medicine 05/09/24 documented as of this encounter
--- OUTSIDE RECORDS SUMMARY | 2025-05-23 03:07 | XMS_ITS | Encounter Summary ---
Author Organization [facility] Address [address] [place] [address] Care Team Providers Care Au Pair Name Role Phone Chacorta Joseph DO Primary Care Provider [phone] Sathya Herron DO Primary Care Provider [phone] Source Comments In the event this information is protected by the Federal Confidentiality of Alcohol and Drug AbusePatient Records regulations: The Federal rules restrict any use of the information to criminally investigate or prosecute any alcohol or drug abuse patient.[facility] Encounter Details Date Type Department Care Team (Late st Contact Info) Description 09/17/2019 Get Medical Advice Dermatology [address] [place] [address] [place] [address] [place] [address] RE: Test Result Question Social History Tobacco Use Types Packs/Day Years [...] Author No 11/26/2014 4:37 PM EST Amanda Kenney, PERFORMANCE REPORTER * Are you blind or do you have serious difficulty seeing, even when wearing glasses? Answer Date of Assessment Author No 11/26/2014 4:37 PM EST Amanda Kenney, PERFORMANCE REPORTER * Do you have serious difficulty walking or climbing stairs? Answer Date of Assessment Author No 11/26/2014 4:37 PM EST Amanda Kenney, PERFORMANCE REPORTER * Do you have difficulty dressing or bathing? Answer Date of Assessment Author No 11/26/2014 4:37 PM EST Amanda Kenney, PERFORMANCE REPORTER * Because of a physical, mental, or emotional condition, do you have difficulty doing errands alone such as visiting a doctor's office or shopping? Answer Date of Assessment Author No 11/26/2014 4:37 PM EST Amanda Kenney, PERFORMANCE REPORTER documented as of this encounter Mental Status * Because of a physical, mental, or emotional condition, do you have serious difficulty concentrating, remembering, or making decisions? Answer Entry Date Author No 11/26/2014 4:37 PM Amanda Jackson, PERFORMANCE REPORTER documented in this encounter Miscellaneous Notes * Telephone Encounter - Fabiola Ontiveros - 09/18/2019 3:03 PM EST Patient's questions addressed by phone on 09/18. documented in this encounter Plan of Treatment Not on file documented as of this encounter Visit Diagnoses Not on filedocumented in this encounter Care Teams Au Pair Relationship Specialty Start Date End Date Chacorta Joseph DO [address] [place] [address] PCP - General Internal Medicine 10/22/13 05/08/24 Sathya Herron DO [address] [place] [address] PCP - General Family Medicine 05/09/24 documented as of this encounter
--- OUTSIDE RECORDS SUMMARY | 2025-05-23 03:07 | XMS_ITS | Encounter Summary ---
Author Organization [facility] Address [address] [place] [address] Care Team Providers Care Television Repair Teacher Name Role Phone Chacorta Joseph DO Primary Care Provider [phone] Sathya Herron DO Primary Care Provider [phone] Source Comments In the event this information is protected by the Federal Confidentiality of Alcohol and Drug AbusePatient Records regulations: The Federal rules restrict any use of the information to criminally investigate or prosecute any alcohol or drug abuse patient.[facility] Encounter Details Date Type Department Care Team (Latest Contact Info) Description 10/04/2019 Patient Msg Allergy [address] [address] Provider, [facility] Dr. Mariana Espino's Medication Recommendations Social History Tobacco Use Types Packs/Day Years [...] No 11/26/2014 4:37 PM ALEJANDRO Amanda Kenney, NICKING MACHINE OPERATOR * Are you blind or do you have serious difficulty seeing, even when wearing glasses? Answer Date of Assessment Author No 11/26/2014 4:37 PM Amanda Jackson, NICKING MACHINE OPERATOR * Do you have serious difficulty walking or climbing stairs? Answer Date of Assessment Author No 11/26/2014 4:37 PM Amanda Jackson, NICKING MACHINE OPERATOR * Do you have difficulty dressing or bathing? Answer Date of Assessment Author No 11/26/2014 4:37 PM Amanda Jackson, NICKING MACHINE OPERATOR * Because of a physical, mental, or emotional condition, do you have difficulty doing errands alone such as visiting a doctor's office or shopping? Answer Date of Assessment Author No 11/26/2014 4:37 PM Amanda Jackson, NICKING MACHINE OPERATOR documented as of this encounter Mental Status * Because of a physical, mental, or emotional condition, do you have serious difficulty concentrating, remembering, or making decisions? Answer Entry Date Author No 11/26/2014 4:37 PM Amanda Jackson, NICKING MACHINE OPERATOR documented in this encounter Plan of Treatment Not on file documented as of this encounter Visit Diagnoses Not on filedocumented in this encounter Care Teams Television Repair Teacher Relationship Specialty Start Date End Date Chacorta Joseph DO [address] [place] [address] PCP - General Internal Medicine 10/22/13 05/08/24 Sathya Herron DO [address] [place] [id number] PCP - General Family Medicine 05/09/24 documented as of this encounter
--- OUTSIDE RECORDS SUMMARY | 2025-05-23 03:07 | XMS_ITS | Patient Health Record ---
Author Organization [facility] Address [address] [place] [address] Care Team Providers Care Qa Consultant Name Role Phone Karlie Flores Primary Care Provider Cass Gallagher Unavailable [phone] Alejandra Mathews Unavailable [phone] Allergies Allergen (clinical drug ingredient) Drug/Non Drug Allergy documented on EMR Reaction Allergy Type Onset Date Status Substance with sulfonamide structure and antibacterial mechanism of action (substance) Sulfa Antibiotics Unknown Drug Allergy Active Reason For Referral No Information Medications Medication SIG (Take, Route, Frequency, Duration) Notes Start Date End Date Status lamoTRIgine 25 MG 1 tab po daily x 2wk s, then 1 twice daily x 2wks, then 2 AM and 1 PM x 2wks, then 2 twice daily x 2wks, monitor rash/fever Orally as directed 11/14/2023 Not-Taking clonazePAM 0.5 MG 1 tablet at bedtime daily, may take 1 tab during day as needed for anxiety Orally as directed; Duration: 30 days 02/28/2025 Active Pepcid 20 MG 1 tablet at bedtime as needed Orally Once a day Active rOPINIRole HCl 4 MG 2 tabs 1-3 hours bef ore bed Orally Once a day Active Lurasidone HCl 20 MG 1 tablet in the nikole liza with food Orally Once a day; Duration: 30 day(s) 03/20/2025 Active Amphetamine-Dextroamphet ER 20 MG 1 capsule in the morning Orally Once a day; Duration: 14 days 05/13/2025 Active Propranolol HCl 60 MG 1 tablet Orally Twice a day; Duration: 30 days As needed Active lamoTRIgine 200 MG TAKE 1 TABLET BY TOSHIA TH EVERY DAY; Duration: 30 days Active Social History Tobacco Use: Social History Observation Description Date Details (start date - stop date) Never Smoker NA - NA Tobacco Screen: Question Answer Notes Are you a: never smoker Alcohol Screening: Question Answer Notes Did you have a drink containing alcohol in the p ast year? No Points 0 Interpretation Negative Problems Problem Type SNOMED Code ICD Code Onset Dates Problem Status W/U Status Risk Notes Problem Attention deficit hyperactivity disorder (134403455) ADHD (attention deficit hyperactivity disorder), combined type (F90.2) Active confirmed Problem Episodic mood disorder (32153242770363) Episodic mood disorder (F39) Active confirmed Problem Generalized anxiety disorder (83486660) Anxiety, generalized (F41.1) Active confirmed Vital Signs Heart Rate 101 /min 03/20/2025 Blood pressure diastolic 87 mm Hg 03/20/2025 Oximetry 98 % 03/20/2025 Height 67 in 03/20/2025 Blood pressure systolic 142 mm Hg 03/20/2025 Weight 273.2 lbs 03/20/2025 BMI 42.78 kg/m2 03/20/2025 Encounters Encounter Location Date Provider Diagnosis [facility] [address] [place] [address] 06/07/2024 Cass Gallagher Anxiety, generalized F41.1 [facility] [address] [place] [address] 09/12/2024 Alejandra Mathews Anxiety, generalized F41.1 [facility] [address] [place] [address] 02/28/2025 Alejandra Mathews ADHD (attention defi cit hyperactivity disorder), combined type F90.2 ; Episodic mood disorder F39 and Anxiety, generalized F41.1 [facility] [address] [place] [address] 05/13/2025 Alejandra Mathews ADHD (attention defi cit hyperactivity disorder), combined type F90.2 [facility] [address] [place] [address] 10/02/2024 Alejandra Mathews Episodic mood disord er F39 and Anxiety, generalized F41.1 [facility] [address] [place] [address] 03/20/2025 Alejandra Mathews Episodic mood disord er F39 ; Anxiety, generalized F41.1 and ADHD (attention deficit hyperactivity disorder), combined type F90.2 [facility] [address] [place] [address] 09/14/2024 Alejandra Mathews Episodic mood disord er F39 and Anxiety, generalized F41.1 [facility] [address] [place] [address] 12/27/2024 Alejandra Mathews Episodic mood disord er F39 ; Anxiety, generalized F41.1 ; Medication management Z79.899 and ADHD (attention deficit hyperactivity disorder), combined type F90.2 [facility] [address] [place] [address] 01/24/2025 Alejandra Mathews Episodic mood disord er F39 ; ADHD (attention deficit hyperactivity disorder), combined type F90.2 and Anxiety, generalized F41.1 Assessments Encounter Date Diagnosis (ICD Code) Assessment Notes Treatment Notes Treatment Clinical Notes Section Notes 09/14/2024 Episodic mood disorder (ICD-10 - F39) Recommended treatment for Bipolar disorder includes FDA approved and OFF label medications: second generation antipsychotics and mood stabilizers. Discussed life threatening side effect of Lamotrigine. Pt is to monitor for new skin rashes or sensation of a sunburn or itchiness or redness, mouth sores or sores in mucus membranes, and call provider immediately and or go to ER, and stop the medication. Second generation antipsychotic medications can cause headache, drowsiness, agitation, dizziness, nausea, or extrapyramidal symptoms such as tremors, muscle spasms, slowness of movement or jerking of muscles. The patient verbalizes understanding with all questions answered thoroughly and is in agreement with treatment plan. Continue current treatment. Call for problems . GOALS: . Maintain medication regimen _Improve mood stability _Improve anxiety control _Improve social and interpersonal functioning Patient/Guardian will call sooner if symptoms worsen. Patient understands to go to ER if needed if symptoms become severe. Crisis Intervention plan was discussed and agreed upon. Patient/Guardian will call 911 in case of emergency. Emergency contact information was provided to the patient/guardian. follow up with Delicia Gallagher. Pharmacological management: . Alternative medication plans were discussed with the patient/guardian. All relevant side effects and potential adverse effects were discussed with the patient/guardian. Standard cautions and potential benefits were discussed. Patient/Guardian consented to the start/continuation of the treatment. 03/20/2025 Episodic mood disorder (ICD-10 - F39) Recommended treatment for Mood disorder includes FDA approved and OFF label medications: second generation antipsychotics and mood stabilizers. Discussed life threatening side effect of Lamotrigine. Pt is to monitor for new skin rashes or sensation of a sunburn or itchiness or redness, mouth sores or sores in mucus membranes, and call provider immediately and or go to ER, and stop the medication. Second generation antipsychotic medications can cause headache, drowsiness, agitation, dizziness, nausea, or extrapyramidal symptoms such as tremors, muscle spasms, slowness of movement or jerking of muscles. Stable The patient verbalizes understanding with all questions answered thoroughly and is in agreement with treatment plan. Continue current treatment. . Call for problems . GOALS: . Maintain medication regimen _Improve mood stability _Improve anxiety control _Improve social and interpersonal functioning Patient/Guardian will call sooner if symptoms worsen. Patient understands to go to ER if needed if symptoms become severe. Crisis Intervention plan was discussed and agreed upon. Patient/Guardian will call 911 in case of emergency. Emergency contact information was provided to the patient/guardian. follow up 1 month. Pharmacological management: . Alternative medication plans were discussed with the patient/guardian. All relevant side effects and potential adverse effects were discussed with the patient/guardian. Standard cautions and potential benefits were discussed. Patient/Guardian consented to the start/continuation of the treatment. 10/02/2024 Episodic mood disorder (ICD-10 - F39) Recommended treatment for Bipolar disorder includes FDA approved and OFF label medications: second generation antipsychotics and mood stabilizers. Discussed life threatening side effect of Lamotrigine. Pt is to monitor for new skin rashes or sensation of a sunburn or itchiness or redness, mouth sores or sores in mucus membranes, and call provider immediately and or go to ER, and stop the medication. Second generation antipsychotic medications can cause headache, drowsiness, agitation, dizziness, nausea, or extrapyramidal symptoms such as tremors, muscle spasms, slowness of movement or jerking of muscles. The patient verbalizes understanding with all questions answered thoroughly and is in agreement with treatment plan. Continue current treatment with decrease in quetiapine at bedtime. Call for problems . GOALS: . Maintain medication regimen _Improve mood stability _Improve anxiety control _Improve social and interpersonal functioning Patient/Guardian will call sooner if symptoms worsen. Patient understands to go to ER if needed if symptoms become severe. Crisis Intervention plan was discussed and agreed upon. Patient/Guardian will call 911 in case of emergency. Emergency contact information was provided to the patient/guardian. follow up 3 months Pharmacological management: . Alternative medication plans were discussed with the patient/guardian. All relevant side effects and potential adverse effects were discussed with the patient/guardian. Standard cautions and potential benefits were discussed. Patient/Guardian consented to the start/continuation of the treatment. 12/27/2024 Episodic mood disorder (ICD-10 - F39) Recommended treatment for Episodic mood disorder includes FDA approved and OFF label medications: second generation antipsychotics and mood stabilizers. Discussed life threatening side effect of Lamotrigine. Pt is to monitor for new skin rashes or sensation of a sunburn or itchiness or redness, mouth sores or sores in mucus membranes, and call provider immediately and or go to ER, and stop the medication. Second generation antipsychotic medications can cause headache, drowsiness, agitation, dizziness, nausea, or extrapyramidal symptoms such as tremors, muscle spasms, slowness of movement or jerking of muscles. Stable The patient verbalizes understanding with all questions answered thoroughly and is in agreement with treatment plan. Continue current treatment. Call for problems . GOALS: . Maintain medication regimen _Improve mood stability _Improve anxiety control _Improve social and interpersonal functioning Patient/Guardian will call sooner if symptoms worsen. Patient understands to go to ER if needed if symptoms become severe. Crisis Intervention plan was discussed and agreed upon. Patient/Guardian will call 911 in case of emergency. Emergency contact information was provided to the patient/guardian. follow up 1 month. Pharmacological management: . Alternative medication plans were discussed with the patient/guardian. All relevant side effects and potential adverse effects were discussed with the patient/guardian. Standard cautions and potential benefits were discussed. Patient/Guardian consented to the start/continuation of the treatment. 01/24/2025 Episodic mood disorder (ICD-10 - F39) Recommended treatment for Bipolar disorder includes FDA approved and OFF label medications: second generation antipsychotics and mood stabilizers. Discussed life threatening side effect of Lamotrigine. Pt is to monitor for new skin rashes or sensation of a sunburn or itchiness or redness, mouth sores or sores in mucus membranes, and call provider immediately and or go to ER, and stop the medication. Second generation antipsychotic medications can cause headache, drowsiness, agitation, dizziness, nausea, or extrapyramidal symptoms such as tremors, muscle spasms, slowness of movement or jerking of muscles. Stable The patient verbalizes understanding with all questions answered thoroughly and is in agreement with treatment plan. Continue current treatment. Call for problems . GOALS: . Maintain medication regimen _Improve mood stability _Improve anxiety control _Improve social and interpersonal functioning Patient/Guardian will call sooner if symptoms worsen. Patient understands to go to ER if needed if symptoms become severe. Crisis Intervention plan was discussed and agreed upon. Patient/Guardian will call 911 in case of emergency. Emergency contact information was provided to the patient/guardian. follow up 3 months Pharmacological management: . Alternative medication plans were discussed with the patient/guardian. All relevant side effects and potential adverse effects were discussed with the patient/guardian. Standard cautions and potential benefits were discussed. Patient/Guardian consented to the start/continuation of the treatment. 01/24/2025 ADHD (attention deficit hyperactivity disorder), combined type (ICD-10 - F90.2) . FDA approved stimulant medication for this age group. Discussed/Denies adverse effects from medication including HTN, tachycardia, insomnia, irritability, headache, or decreased appetite. . All relevant and serious adverse effects were discussed. Standard precautions and potential benefits were discussed. Patient/Guardian consented to begin medication/ continue treatment plan . Patient continues to meet criteria for attention deficit hyperactivity disorder. Pt does not meet criteria for bipolar disorder, major depressive disorder, or other persistent mood disorders. Will continue to monitor the patient for presentation of new symptoms or behaviors. . Continue current treatment; tolerating meds well, compliant; call for problems; questions answered satisfactorily, agreeable to treatment plan . GOALS: . Maintain medication regimen _Improve social and interpersonal functioning _Improve attention and or hyperactivity . follow up 3 months . Crisis Intervention plan was discussed and agreed upon. Patient/Guardian will call 911 in case of emergency. Emergency contact information was provided to the patient/guardian. . OARRS reviewed . 09/12/2024 Anxiety, generalized (ICD-10 - F41.1) 12/27/2024 Anxiety, generalized (ICD-10 - F41.1) 10/02/2024 Anxiety, generalized (ICD-10 - F41.1) . Discussed seriousness of taking benzodiazepine medication daily and as needed, risks and benefits discussed including risk of addiction and accidental . Pt verbalized understanding. . High risk medications are drugs that have a heightened risk of causing significant patient harm when they are used in error. High risk medicines include medicines: with a low therapeutic index. that present a high risk when administered by the wrong route or when other system errors occur. Please notify provider for any concerns about your medications. . 06/07/2024 Anxiety, generalized (ICD-10 - F41.1) 02/28/2025 ADHD (attention deficit hyperactivity disorder), combined type (ICD-10 - F90.2) 03/20/2025 Anxiety, generalized (ICD-10 - F41.1) 09/14/2024 Anxiety, generalized (ICD-10 - F41.1) . Discussed seriousness of taking benzodiazepine medication daily and as needed, risks and benefits discussed including risk of addiction and accidental . Pt verbalized understanding. . High risk medications are drugs that have a heightened risk of causing significant patient harm when they are used in error. High risk medicines include medicines: with a low therapeutic index. that present a high risk when administered by the wrong route or when other system errors occur. Please notify provider for any concerns about your medications. . 05/13/2025 ADHD (attention deficit hyperactivity disorder), combined type (ICD-10 - F90.2) 03/20/2025 ADHD (attention deficit hyperactivity disorder), combined type (ICD-10 - F90.2) . FDA approved stimulant medication for this age group. Discussed/Denies adverse effects from medication including HTN, tachycardia, insomnia, irritability, headache, or decreased appetite. . All relevant and serious adverse effects were discussed. Standard precautions and potential benefits were discussed. Patient/Guardian consented to begin medication/ continue treatment plan . Patient continues to meet criteria for attention deficit hyperactivity disorder. Pt does not meet criteria for bipolar disorder, major depressive disorder, or other persistent mood disorders. Will continue to monitor the patient for presentation of new symptoms or behaviors. . Continue current treatment; tolerating meds well, compliant; call for problems; questions answered satisfactorily, agreeable to treatment plan . GOALS: . Maintain medication regimen _Improve social and interpersonal functioning _Improve attention and or hyperactivity . follow up 1 month . Crisis Intervention plan was discussed and agreed upon. Patient/Guardian will call 911 in case of emergency. Emergency contact information was provided to the patient/guardian. . OARRS reviewed . 02/28/2025 Episodic mood disorder (ICD-10 - F39) 01/24/2025 Anxiety, generalized (ICD-10 - F41.1) . Discussed seriousness of taking benzodiazepine medication daily and as needed, risks and benefits discussed including risk of addiction and accidental . Pt verbalized understanding. . High risk medications are drugs that have a heightened risk of causing significant patient harm when they are used in error. High risk medicines include medicines: with a low therapeutic index. that present a high risk when administered by the wrong route or when other system errors occur. Please notify provider for any concerns about your medications. . 12/27/2024 Medication management (ICD-10 - Z79.899) 02/28/2025 Anxiety, generalized (ICD-10 - F41.1) 12/27/2024 ADHD (attention deficit hyperactivity disorder), combined type (ICD-10 - F90.2) . FDA approved stimulant medication for this age group. Discussed/Denies adverse effects from medication including HTN, tachycardia, insomnia, irritability, headache, or decreased appetite. . All relevant and serious adverse effects were discussed. Standard precautions and potential benefits were discussed. Patient/Guardian consented to begin medication/ continue treatment plan . Patient continues to meet criteria for attention deficit hyperactivity disorder. Pt does not meet criteria for bipolar disorder, major depressive disorder, or other persistent mood disorders. Will continue to monitor the patient for presentation of new symptoms or behaviors. . Continue current treatment; tolerating meds well, compliant; call for problems; questions answered satisfactorily, agreeable to treatment plan . GOALS: . Maintain medication regimen _Improve social and interpersonal functioning _Improve attention and or hyperactivity . follow up 1 month. . Crisis Intervention plan was discussed and agreed upon. Patient/Guardian will call 911 in case of emergency. Emergency contact information was provided to the patient/guardian. . OARRS reviewed . Plan Of Treatment Pending Test Test Name Order Date Comprehensive Metabolic Panel 03/20/2025 Comprehensive Metabolic Panel 12/27/2024 Thyroid Profile II 12/27/2024 Thyroid Profile II 03/20/2025 Complete Blood Count Auto Diff Complete Blood Count Auto Diff 5 Vitamin D 25 ([place]), D2+D3 12/27/2024 Vitamin D 25 ([place]), D2+D3 03/20/2025 Next Appt Details Provider Name:Karlie lynnartem, 05/23/2025 08:30:00 AM, [address] [place], [address], Insurance Providers Payer Name Payer Address Payer Phone Subscriber Number Group Number Insured Name Patient Relationship to Insured Coverage Start Date Coverage End Date [employer] [address] [place] [address] [phone] [id number] MIKAEL LEHMAN Self - patient is the insured 4 [employer] [address] [place] [address] [id number] MIKAEL LEHMAN Self - patient is the insured 2 3 Medical (General) History Medical History History ICD Code anxiety restless leg syndrome ADHD Surgical History Surgery Date(Month/Year) colonoscopy esophagogastroduodenoscopy (EGD) wisdom teeth lithotripsy urethral stricture
--- OUTSIDE RECORDS SUMMARY | 2025-05-23 03:07 | XMS_ITS | Encounter Summary ---
Author Organization [facility] Address [address] [place] [address] Care Team Providers Care Portable Sawmill Operator Name Role Phone Chacorta Joseph DO Primary Care Provider [phone] Sathya Herron DO Primary Care Provider [phone] Source Comments In the event this information is protected by the Federal Confidentiality of Alcohol and Drug AbusePatient Records regulations: The Federal rules restrict any use of the information to criminally investigate or prosecute any alcohol or drug abuse patient.[facility] Encounter Details Date Type Department Care Team (Late st Contact Info) Description 09/27/2019 Patient Msg Rheumatology [id number] [place] [address] [place] [address], [address] [place] [address] RE: Rheum workup Social History Tobacco Use Types Packs/Day Years [...] No 11/26/2014 4:37 PM ALEJANDRO Amanda Kenney, HIDE MEASURING MACHINE OPERATOR * Are you blind or do you have serious difficulty seeing, even when wearing glasses? Answer Date of Assessment Author No 11/26/2014 4:37 PM EST Amanda Kenney ry, HIDE MEASURING MACHINE OPERATOR * Do you have serious difficulty walking or climbing stairs? Answer Date of Assessment Author No 11/26/2014 4:37 PM ALEJANDRO Amanda Kenney ry, HIDE MEASURING MACHINE OPERATOR * Do you have difficulty dressing or bathing? Answer Date of Assessment Author No 11/26/2014 4:37 PM ALEJANDRO Amanda Kenney, HIDE MEASURING MACHINE OPERATOR * Because of a physical, mental, or emotional condition, do you have difficulty doing errands alone such as visiting a doctor's office or shopping? Answer Date of Assessment Author No 11/26/2014 4:37 PM ALEJANDRO Amanda Kenney, HIDE MEASURING MACHINE OPERATOR documented as of this encounter Mental Status * Because of a physical, mental, or emotional condition, do you have serious difficulty concentrating, remembering, or making decisions? Answer Entry Date Author No 11/26/2014 4:37 PM ALEJANDRO Amanda Kenney, HIDE MEASURING MACHINE OPERATOR documented in this encounter Plan of Treatment Not on file documented as of this encounter Visit Diagnoses Not on filedocumented in this encounter Care Teams Portable Sawmill Operator Relationship Specialty Start Date End Date Chacorta Joseph DO [address] [facility] [address] [place] [address] PCP - General Internal Medicine 10/22/13 05/08/24 Sathya Herron DO [address] [place] [address] PCP - General Family Medicine 05/09/24 documented as of this encounter
--- OUTSIDE RECORDS SUMMARY | 2025-05-23 03:07 | XMS_ITS | Encounter Summary ---
Author Organization [facility] Address [address] [place] [address] Care Team Providers Care Workers Compensation Administrator Name Role Phone Chacorta Joseph DO Primary Care Provider [phone] Sathya Herron DO Primary Care Provider [phone] Source Comments In the event this information is protected by the Federal Confidentiality of Alcohol and Drug AbusePatient Records regulations: The Federal rules restrict any use of the information to criminally investigate or prosecute any alcohol or drug abuse patient.[facility] Encounter Details Date Type Department Care Team (Late st Contact Info) Description 10/26/2013 Patient Msg Medical Records [address] [place] [address] Provider, [facility] RE:vitamin D Social History Tobacco Use Types Packs/Day Years [...] on filedocumented in this encounter Care Teams Workers Compensation Administrator Relationship Specialty Start Date End Date Chacorta Joseph DO [address] [place] [address] PCP - General Internal Medicine 10/22/13 05/08/24 Sathya Herron DO [address] [place] [address] PCP - General Family Medicine 05/09/24 documented as of this encounter
--- OUTSIDE RECORDS SUMMARY | 2025-05-23 03:07 | XMS_ITS | Encounter Summary ---
Author Organization [facility] Address [address] [place] [address] Care Team Providers Care Lining Feller Name Role Phone Chacorta Joseph DO Primary Care Provider [phone] Sathya Herron DO Primary Care Provider Source Comments In the event this information is protected by the Federal Confidentiality of Alcohol and Drug AbusePatient Records regulations: The Federal rules restrict any use of the information to criminally investigate or prosecute any alcohol or drug abuse patient.[facility] Encounter Details Date Type Department Care Team (Late st Contact Info) Description 11/09/2013 Patient Msg Medical Records [address] [place] [id number] Provider, [facility] RE:follow-up Social History Tobacco Use Types Packs/Day Years [...] on filedocumented in this encounter Care Teams Lining Feller Relationship Specialty Start Date End Date Chacorta Joseph DO [address] [place] [id number] PCP - General Internal Medicine 10/22/13 05/08/24 Sathya Herron DO [address] [place] [id number] PCP - General Family Medicine 05/09/24 documented as of this encounter
--- OUTSIDE RECORDS SUMMARY | 2025-05-23 03:07 | XMS_ITS | Clinical Summary ---
Author Organization [employer] Address [id number] [address] [place] [address] Care Team Providers Care High School Coach Name Role Phone Sathya Herron DO Primary Care Provider [phone] Allergies Active Allergy Reactions Criticality Noted Date Comments Adhesive Tape-Silicones 10/15/2019 Sulfa (Sulfonamide Antibiotics) 10/03 Medications FLUoxetine (PROzac) 20 mg capsule Take 20 mg by mouth daily. Active aspirin 81 mg Take 81 mg by mouth daily. Active [id number] AC-DHA ORAL Take 1 tablet by mouth. Active cetirizine (ZyrTEC) 10 mg tablet Take 10 mg by mouth 2 (two) times a day. 07/10/2019 Active famotidine (PEPCID) 20 mg tablet Take 20 mg by mouth 2 (two) times a day. 06/18/2019 Active diphenhydrAMINE (SOMINEX) 25 mg tablet Take 25 mg by mouth every 6 (six) hours as needed. Active montelukast (SINGULAIR) 10 mg tablet Take 1 tablet by mouth nightly as needed. 10/07/2019 Active Active Problems No known active problems Family History Medical History Relation Name Comments Hypertension Maternal Grandfather Heart disease Maternal Grandmother Hypertension Maternal Grandmother Stroke Maternal Grandmother Hyperlipidemia Mother Hypertension Mother COPD Paternal Grandfather Diverticulitis Paternal Grandfather Hypertension Paternal Grandfather Macular degeneration Paternal Grandmother Relation Name Status Comments Father Alive Maternal Grandfather Alive Maternal Grandmother Alive Mother Alive Paternal Grandfather Alive Paternal Grandmother Alive Social History Tobacco Use Types Packs/Day Years Used Date Smoking Tobacco: Never Smokeless Tobacco: Never Alcohol Use Standard Drinks/Week Comments Not Currently 0 (1 standard drink = 0.6 oz pur e alcohol) Childcare Answer Date Recorded Childcare Unknown 09/24/2019 Employment Answer Date Recorded Employment Unknown 09/24/2019 Purpose - Life Answer Date Recorded Purpose and direction in life Unknown Comments No Sex and Gender Information Value Date Recorded Sex Assigned at Not on file Legal Sex Female 9:47 AM EST Gender Identity Not on file Sexual Orientation Not on file Last Filed Vital Signs Vital Sign Reading Time Taken Comments Blood Pressure 108/75 10/26/2019 1:45 PM EST Pulse 91 10/26/2019 1:45 PM EST Temperature - - Respiratory Rate - - Oxygen Saturation - - Inhaled Oxygen Concentration - - Weight 102.8 kg (226 lb 10.1 oz) 10/26/2019 1:45 PM EST Height - - Body Mass Index - - Plan of Treatment Health Maintenance Due Date Last Done Comments Depression Screening 2003 Tobacco Screening 2003 Adult BMI Screening 2009 DTaP,Tdap and Td Vaccines (1 - Tdap) 2010 Pap Smear 2012 Influenza Vaccine 06/03/2025 06/03/2019, , 06/07/2016, Additional history exists Medical Devices Not on file Insurance [employer] Care Teams High School Coach Relationship Specialty Start Date End Date Sathya Herron DO [address] [place] [address] [place] [address] PCP - General Family Medicine 11/22/19
--- OUTSIDE RECORDS SUMMARY | 2025-05-23 03:07 | XMS_ITS | Encounter Summary ---
Author Organization [facility] Address [address] [place] [address] Care Team Providers Care Double Bottom Driver Name Role Phone Chacorta Joseph DO Primary Care Provider [phone] Sathya Herron DO Primary Care Provider [phone] Source Comments In the event this information is protected by the Federal Confidentiality of Alcohol and Drug AbusePatient Records regulations: The Federal rules restrict any use of the information to criminally investigate or prosecute any alcohol or drug abuse patient.[facility] Reason for Visit * Reason Comments Received Outside Medical Records Encounter Details Date Type Department Care Team (Late st Contact Info) Description 09/06/2019 [facility] [place] [place] [address] Clinical, Nurse [address] [place], [place] [id number] Received Outside Medical Records Social History Tobacco Use Types Packs/Day Years Used Date Smoking Tobacco: Never Smokeless Tobacco: Never Alcohol Use Standard Drinks/Week Comments Yes 0 (1 standard drink = 0.6 oz pur e alcohol) 1 per week Comments No Sex and Gender Information Value [...] Assessment Author No 11/26/2014 4:37 PM ALEJANDRO KenneyAmanda, ROLLING MACHINE OPERATOR * Are you blind or do you have serious difficulty seeing, even when wearing glasses? Answer Date of Assessment Author No 11/26/2014 4:37 PM ALEJANDRO KenneyAmanda ry, ROLLING MACHINE OPERATOR * Do you have serious difficulty walking or climbing stairs? Answer Date of Assessment Author No 11/26/2014 4:37 PM ALEJANDRO Amanda Kenney, ROLLING MACHINE OPERATOR * Do you have difficulty dressing or bathing? Answer Date of Assessment Author No 11/26/2014 4:37 PM ALEJANDRO KenneyAmanda, ROLLING MACHINE OPERATOR * Because of a physical, mental, or emotional condition, do you have difficulty doing errands alone such as visiting a doctor's office or shopping? Answer Date of Assessment Author No 11/26/2014 4:37 PM ALEJANDRO KenneyAmanda, ROLLING MACHINE OPERATOR documented as of this encounter Mental Status * Because of a physical, mental, or emotional condition, do you have serious difficulty concentrating, remembering, or making decisions? Answer Entry Date Author No 11/26/2014 4:37 PM ALEJANDRO Amanda Kenney, ROLLING MACHINE OPERATOR documented in this encounter Plan of Treatment Not on file documented as of this encounter Visit Diagnoses Not on filedocumented in this encounter Care Teams Double Bottom Driver Relationship Specialty Start Date End Date Chacorta Joseph DO [address] [place] [address] PCP - General Internal Medicine 10/22/13 05/08/24 Sathya Herron DO [address] [place] [phone] PCP - General Family Medicine 05/09/24 documented as of this encounter
[2025-05-23 03:37] LABS: Hematocrit 42.8 % (36.0-48.0); Hemoglobin 14.6 g/dL (12.0-16.0); Immature Granulocytes Abs Auto 0.02 10^3/uL (0.00-0.03); Immature Granulocytes Pct Auto 0.2 % (0.0-0.5); Lymphocytes Absolute Auto 1.6 10^3/uL (1.2-3.8); Mean Corpuscular HGB Conc 34.1 g/dL (29.9-35.2); Mean Corpuscular Hemoglobin 28.4 pg (26.7-34.0); Mean Corpuscular Volume 83.3 fL (81.0-99.0); Platelet Count 354 10^3/uL (150-450); Red Blood Count 5.14 10^6/uL (4.20-5.40); White Blood Count 11.0 10^3/uL (4.0-11.0)
[2025-05-23] MEDS: 0.9 % SODIUM CHLORIDE 1,000 ML 1000 ML IV (03:38)
[2025-05-23 03:39] LABS: Glucose Urine UA NEGATIVE (NEGATIVE)
[2025-05-23] MEDS: MORPHINE SULFATE 4 MG/ML VIAL IV ×2 (03:39→04:09)
[2025-05-23 03:48] LABS: Cast Seen? NONE SEEN #/LPF (NONE SEEN); Crystals Seen? Seen #/HPF (None Seen); Urine Culture Indicated NO
[2025-05-23 03:50] LABS: Anion Gap 9.3; Blood Urea Nitrogen 13.0 mg/dL (7.0-18.0); Calcium 9.5 mg/dL (8.5-10.1); Carbon Dioxide 30.1 mmol/L (21.0-32.0); Chloride 106 mmol/L (98-107); Estimated GFR (African America >60 (>=60 mL/min/1.73m^2); Estimated GFR (Non-African Ame 52 (>=60 mL/min/1.73m^2); Glucose 127 mg/dL (74-106); Potassium 3.4 mmol/L (3.5-5.1); Sodium 142 mmol/L (136-145)
[2025-05-23 04:13] VITALS: BP 122/82; PULSE 63; TEMP 36.9; O2SAT 99
--- NOTE | 2025-05-23 04:24 | ED.GENADUL1 ---
HPI HPI - General Adult General Chief complaint: Urogenital-Female Stated complaint: UROLOGICAL ISSUE Time Seen by Provider: 05/23/25 03:02 Source: patient Mode of arrival: walk-in History of Present Illness HPI narrative: 34-year-old female presents for left flank pain. She has a known left-sided kidney stone that she reports is 5 to 6 mm in size. This was found on a CAT scan at another facility recently. She is scheduled for a lithotripsy in a week. No trauma or fever. She finished an antibiotic about a week ago. The pain is moderate to severe and was not improved by Percocet that she took at home. Related Data Home Medications ?Medication ?Instructions ?Recorded ?Confirmed clonazepam 0.5 mg tablet 0.5 mg PO QPM 05/17/25 05/17/25 dextroamphetamine-amphetamine ER 20 mg PO DAILY 05/17/25 05/17/25 20 mg 24hr capsule,extend release fluconazole 150 mg tablet 150 mg PO Q72H 05/17/25 05/17/25 ketorolac 10 mg tablet 10 mg PO Q8H PRN pain 05/17/25 05/17/25 lamotrigine 200 mg tablet 200 mg PO DAILY 05/17/25 05/17/25 oxycodone-acetaminophen 5 mg-325 1 tab PO Q8H PRN pain 05/17/25 05/17/25 mg tablet propranolol 60 mg tablet 60 mg PO Q12H 05/17/25 05/17/25 quetiapine 25 mg tablet 25 mg PO QPM 05/17/25 05/17/25 ropinirole 4 mg tablet 8 mg PO QPM 05/17/25 05/17/25 tamsulosin 0.4 mg capsule 0.4 mg PO Q24H 05/17/25 05/17/25 tirzepatide (weight loss) 5 mg/0.5 5 mg subcut QWEEK 05/17/25 05/17/25 mL subcutaneous pen injector Previous Rx's ?Medication ?Instructions ?Recorded cephalexin 500 mg capsule 500 mg PO TID 10 days #30 caps 05/23/25 ondansetron 4 mg disintegrating 4 mg PO Q6H PRN nausea and 05/23/25 tablet vomiting #20 tabs oxycodone-acetaminophen 5 mg-325 1 tab PO Q6H PRN pain 5 days #20 05/23/25 mg tablet (Percocet) tabs Allergies Allergy/AdvReac Type Severity Reaction Status Date / Time Sulfa (Sulfonamide Allergy Hives Verified 05/23/25 03:14 Antibiotics) Opioid HPI Opioid Management Most Recent Opioid Data: Last Pain Scale 4 Today, 04:59 Last ED Pain Assessment Today, 04:32 Last MAR Pain Assessment Today, 03:39 Review of Systems ROS Narrative A ten point review of systems is negative except as noted above. PFSH PFS Medical History (Updated 05/23/25 @ 06:05 by Luciano Yuen MD) Pseudotumor cerebri ?G93.2 - Benign intracranial hypertension (ICD-10) Back pain ?M54.9 - Dorsalgia, unspecified (ICD-10) ADHD ?F90.9 - Attention-deficit hyperactivity disorder, unspecified type (ICD-10) Sleep apnea ?G47.30 - Sleep apnea, unspecified (ICD-10) Restless leg ?G25.81 - Restless legs syndrome (ICD-10) Migraine ?G43.909 - Migraine, unspecified, not intractable, without status migrainosus (ICD-10) GERD (gastroesophageal reflux disease) ?K21.9 - Gastro-esophageal reflux disease without esophagitis (ICD-10) Palpitations ?R00.2 - Palpitations (ICD-10) S/P extracorporeal shock wave therapy ?Z98.890 - Other specified postprocedural states (ICD-10) Depression ?F32.A - Depression, unspecified (ICD-10) Anxiety ?F41.9 - Anxiety disorder, unspecified (ICD-10) Hydronephrosis ?N13.30 - Unspecified hydronephrosis (ICD-10) Ureteral stone ?N20.1 - Calculus of ureter (ICD-10) Surgical History (Updated 05/17/25 @ 08:42 by Beth Lynch NP) History of wisdom tooth extraction ?K08.409 - Partial loss of teeth, unspecified cause, unspecified class (ICD-10) History of colonoscopy ?Z98.890 - Other specified postprocedural states (ICD-10) History of esophagogastroduodenoscopy (EGD) ?Z98.890 - Other specified postprocedural states (ICD-10) S/P ureteral stent placement ?Z96.0 - Presence of urogenital implants (ICD-10) H/O section ?Z98.891 - History of uterine scar from previous surgery (ICD-10) Family History (Updated 05/17/25 @ 08:42 by Beth Lynch NP) Other Family history of cancer Family history of hypertension Family history of skin cancer TIA (transient ischemic attack) Social History (Updated 05/17/25 @ 08:36 by Beth Lynch NP) Within the past year, how often did you have a drink containing alcohol: monthly or less Smoking status: Never smoker Non-prescribed substance use: denies use Previous occupational history: [employer] Highest level of school completed/degree received: Bachelor's degree Little interest or pleasure in doing things: several days Feeling down, depressed, or hopeless: several days Exam Narrative Exam Narrative: Nurses note and vital signs reviewed and patient is not hypoxic. General: The patient appears uncomfortable. Skin: Warm, dry, no pallor noted. There is no rash noted. Head: Normocephalic, atraumatic Eye: Normal conjunctiva, no drainage Ears, Nose, Mouth, and Throat: oral mucosa is moist. Nares patent. Cardiovascular: Regular Rate and Rhythm Respiratory: Patient is in no distress, no accessory muscle use, lungs are clear to auscultation, no wheezing, rales or rhonchi Back: non-tender, no CVA tenderness bilaterally to percussion. GI: Soft and nontender Musculoskeletal: The patient has no evidence of calf tenderness, no pitting edema, symmetrical pulses noted bilaterally Neurological: A&O, normal speech Psychiatric: Cooperative Constitutional Vital Signs, click to edit/add: Last Vital Signs Temp 98.4 F 05/23/25 04:13 Pulse 63 05/23/25 04:13 Resp 18 05/23/25 04:13 BP 122/82 05/23/25 04:13 Pulse Ox 99 05/23/25 04:13 Course Vital Signs Vital signs: Vital Signs Pulse Rate 72 05/23/25 03:07 Respiratory Rate 20 05/23/25 03:07 Blood Pressure 134/84 05/23/25 03:07 Temperature 98.4 F 05/23/25 04:13 Pulse Rate 63 05/23/25 04:13 Respiratory Rate 18 05/23/25 04:13 Blood Pressure 122/82 05/23/25 04:13 Pulse Oximetry 99 05/23/25 04:13 Medical Decision Making MDM Narrative Medical decision making narrative: Blood work and urinalysis are negative and she is feeling improved after IV morphine and Dilaudid. I discussed doing another CAT scan but she prefers not to have one because of the cost and the radiation. She is being discharged home with a prescription for Percocet and Keflex and Zofran. Treatment diagnosis and follow-up were discussed with the patient. Differential Diagnosis Differential Diagnosis: Kidney stone, renal colic, UTI Lab Data Lab results reviewed: Yes I reviewed the patient's lab results Labs: Lab Results 05/23/25 05/23/25 Range/Units 03:20 03:30 WBC 11.0 (4.0-11.0) 10^3/uL RBC 5.14 (4.20-5.40) 10^6/uL Hgb 14.6 (12.0-16.0) g/dL Hct 42.8 (36.0-48.0) % MCV 83.3 (81.0-99.0) fL MCH 28.4 (26.7-34.0) pg MCHC 34.1 (29.9-35.2) g/dL RDW 12.8 (11.0-15.0) % Plt Count 354 (150-450) 10^3/uL MPV 8.6 L (9.5-13.5) fL Neut % (Auto) 78.0 H (43.0-75.0) % Lymph % (Auto) 14.9 L (20.5-60.0) % [place] % (Auto) 5.6 (1.7-12.0) % Eos % (Auto) 0.8 L (0.9-7.0) % Baso % (Auto) 0.5 (0.2-2.0) % Neut # (Auto) 8.6 H (1.4-6.5) 10^3/uL Lymph # (Auto) 1.6 (1.2-3.8) 10^3/uL [place] # (Auto) 0.6 (0.3-0.8) 10^3/uL Eos # (Auto) 0.1 (0.0-0.7) 10^3/uL Baso # (Auto) 0.1 (0.0-0.1) 10^3/uL Abs Immat Gran (auto) 0.02 (0.00-0.03) 10^3/uL Imm/Tot Granulo (auto) 0.2 (0.0-0.5) % Sodium 142 (136-145) mmol/L Potassium 3.4 L (3.5-5.1) mmol/L Chloride 106 (98-107) mmol/L Carbon Dioxide 30.1 (21.0-32.0) mmol/L Anion Gap 9.3 BUN 13.0 (7.0-18.0) mg/dL Creatinine 1.20 H (0.55-1.02) mg/dL Est GFR ( Amer) >60 (>=60 mL/min/1.73m^2) Est GFR (Non-Af Amer) 52 L (>=60 mL/min/1.73m^2) BUN/Creatinine Ratio 10.8 Glucose 127 H (74-106) mg/dL Calcium 9.5 (8.5-10.1) mg/dL Urine Color Dk. brown (YELLOW) Urine Clarity Clear (CLEAR) Urine pH 6.0 (5.0-9.0) Ur Specific [place] >=1.030 A (1.005-1.025) Urine Protein 100 A (NEG/TRACE) mg/dL Urine Glucose (UA) Negative (NEGATIVE) mg/dL Urine Ketones 15 A (NEGATIVE) mg/dL Urine Occult Blood Large A (NEGATIVE) Urine Nitrite Negative (NEGATIVE) Urine Bilirubin Moderate A (NEGATIVE) Urine Urobilinogen 1.0 (0.2-1.0) EU/dL Ur Leukocyte Esterase Negative (NEGATIVE) Urine RBC 10-20 A (0-2) #/HPF Urine WBC 0-2 A (NONE SEEN) #/HPF Ur Squamous Epith Cells Rare (NONE/RARE) #/LPF Urine Crystals Seen A (None Seen) #/HPF Calcium Oxalate Crystal Rare Urine Bacteria Trace A (NONE SEEN) #/HPF Urine Casts None seen (NONE SEEN) #/LPF Urine Mucus None seen (NONE SEEN) Ur Culture Indicated? No Discharge Plan Discharge Chief Complaint: Urogenital-Female Clinical Impression: Renal colic Patient Disposition: Home, Self-Care Time of Disposition Decision: 06:05 Condition: Good Mode of Transportation: Private Vehicle Prescriptions / Home Meds: New cephalexin 500 mg capsule 500 mg PO TID 10 Days Qty: 30 0RF oxycodone-acetaminophen [Percocet] 5-325 mg tablet 1 tab PO Q6H PRN (Reason: pain) 5 Days Qty: 20 0RF ondansetron 4 mg tablet,disintegrating 4 mg PO Q6H PRN (Reason: nausea and vomiting) Qty: 20 0RF No Action ropinirole 4 mg tablet 8 mg PO QPM lamotrigine 200 mg tablet 200 mg PO DAILY clonazepam 0.5 mg tablet 0.5 mg PO QPM propranolol 60 mg tablet 60 mg PO Q12H tirzepatide (weight loss) 5 mg/0.5 mL pen injector 5 mg subcut QWEEK ketorolac 10 mg tablet 10 mg PO Q8H PRN (Reason: pain) fluconazole 150 mg tablet 150 mg PO Q72H tamsulosin 0.4 mg capsule 0.4 mg PO Q24H oxycodone-acetaminophen 5-325 mg tablet 1 tab PO Q8H PRN (Reason: pain) quetiapine 25 mg tablet 25 mg PO QPM dextroamphetamine-amphetamine 20 mg capsule,extended release 24hr 20 mg PO DAILY Print Language: Finnish Referrals: MICHELLE MAYA [Primary Care Provider, Family Practice] - 1 week
--- NOTE | 2025-05-23 04:32 | PC.NURSE ---
patient verbalizes pain is more tolerable than PUMPMAN. Patient is still uncomfortable and above pain goal. RN recommended Toradol, physician denied due to scheduled surgery 05/30.
[2025-05-23] MEDS: HYDROMORPHONE HCL 1 MG/ML CARTRIDGE IV (04:59)
[2025-05-23 06:04] VITALS: BP 112/71; PULSE 67; O2SAT 97
== END 2025-05-23 06:22 | disposition home or self-care (01) ==
PROVIDERS: Emergency Provider Emergency Medicine; PCP Family Medicine
DX: N23 Unspecified renal colic (principal); N20.0 Calculus of kidney
CPT/HCPCS: 36415; 80048; 81001; 85025; 96374; 96375; 99284; J1171; J2270; J2405

== ENCOUNTER 2025-05-30 11:12 | Day surgery (SDC) | payer OTHER, SELFPAY ==
--- OUTSIDE RECORDS SUMMARY | 2025-04-19 12:00 | XMS_ITS ---
Author Organization [facility] Address [address] [place] [address] Care Team Providers Care Dyslexia Teacher Name Role Phone Karlie Flores Primary Care Provider [phone] Alejandra Mathews [phone] REASON FOR VISIT 1 month f/u virtual Healow Encounters Encounter Location Date Provider Diagnosis [facility] [address] [place] [address] 04/19/2025 Alejandra Mathews Plan Of Treatment Next Appt Details Provider Name:Karlie payan, 07/15/2025 04:30:00 PM, [facility] [place], [address], Progress Notes * MARLEN LEHMANB:1990 (34 yo F)Acc No.[id number]:04/19/2025 Behavioral Health Patient: MIKAEL GONZÁLES Appointment Provider: Mildred Mathews :1990 A ge:34 Y S ex:Female Date:04/19/2025 Address:[address] [place], [place] [id number] Pcp:Karlie Flores Subjective: * Chief Complaints: * 1 . 1 month f/u virtual Healow. * Medical History: Objective: * Vitals: Assessment: Plan: * Treatment: * Images: * Electronic signature of BALAJI Piper on 05/30/2025 at 11:16 AM EDT Sign off status: Pending * Appointment Provider: Mildred Mathews Date: 0 04/19/2025 Generated for Jesus ortega/Diana/Keny on: 0 05/30/2025 11:16 AM EDT
--- OUTSIDE RECORDS SUMMARY | 2025-04-29 04:15 | XMS_ITS ---
Author Organization [facility] Serv[facility] es Address [address] [place] [address] Care Team Providers Care Toll Transmission Worker Name Role Phone Karlie Flores Primary Care Provider REASON FOR VISIT MYKEL from Maninder Mathews Encounters Encounter Location Date Provider Diagnosis [facility] [address] [place] [address] 04/29/2025 Karlie Flores Plan Of Treatment Next Appt Details Provider Name:Karlie Sevilla er, 07/15/2025 04:30:00 PM, [facility] [place], [address], Progress Notes * MARLEN LEHMANB:1990 (34 yo F)Acc No.[id number]:04/29/2025 Behavioral Health Patient: MIKAEL GONZÁLES Provider: Coral Flores :1990 A ge:34 Y S ex:Female Date:04/29/2025 Address:[address] [place], [place] [id number] Subjective: * Chief Complaints: * 1 . MYKEL from Maninder Mathews. * Medical History: Objective: * Vitals: Assessment: Plan: * Treatment: * Images: * Electronic signature of BALAJI La on 05/30/2025 at 11:16 AM EDT Sign off status: Pending * Provider: Coral Flores Date: 0 04/29/2025 Generated for Jesus ortega/Diana/Keny on: 0 05/30/2025 11:16 AM EDT
[2025-05-17 08:51] VITALS: BP 107/73; PULSE 79; TEMP 36.3; O2SAT 98; BMI 41.2
--- OUTSIDE RECORDS SUMMARY | 2025-05-23 04:30 | XMS_ITS ---
Author Organization [employer] [facility] Address [address] [place] [address] Care Team Providers Care Flight Operations Dispatch Clerk Name Role Phone Karlie Flores Primary Care Provider [phone] REASON FOR VISIT Pt is a 34 year old female, MYKEL from [facility], 2 month f/u, Pt states she is doing pretty good, stable, LM Medications Medication SIG (Take, Route, Frequency, Duration) Notes Start Date End Date Status Amphetamine-Dextroamphet ER 20 MG 1 capsule in the morning Orally Once a day; Duration: 14 days 05/13/2025 Active Propranolol HCl 60 MG 1 tablet Orally Twice a day; Duration: 30 days As needed Active lamoTRIgine 25 MG 1 tab po daily x 2wk s, then 1 twice daily x 2wks, then 2 AM and 1 PM x 2wks, then 2 twice daily x 2wks, monitor rash/fever Orally as directed 11/14/2023 Not-Taking Lurasidone HCl 20 MG 1 tablet in the nikole liza with food Orally Once a day; Duration: 30 day(s) 03/20/2025 Not-Taking lamoTRIgine 200 MG TAKE 1 TABLET BY EVERY DAY; Duration: 30 days Active clonazePAM 0.5 MG 1 tablet at bedtime daily, may take 1 tab during day as needed for anxiety Orally as directed; Duration: 30 days 02/28/2025 Active rOPINIRole HCl 4 MG 2 tabs 1-3 hours bef ore bed Orally Once a day Active Pepcid 20 MG 1 tablet at bedtime as needed Orally Once a day Active Vital Signs Height 67 in 05/23/2025 Weight 268.0 lbs 05/23/2025 BMI 41.97 kg/m2 05/23/2025 Oximetry 98 % 05/23/2025 Heart Rate 81 /min 05/23/2025 k Encounters Encounter Location Date Provider Diagnosis [facility] [address] [place] [address] 05/23/2025 Karlie Flores ADHD (attention deficit hyperactivity disorder), combined type F90.2 ; Episodic mood disorder F39 and Anxiety, generalized F41.1 Assessments Encounter Date Diagnosis (ICD Code) Assessment Notes Treatment Notes Treatment Clinical Notes Section Notes 05/23/2025 ADHD (attention deficit hyperactivity disorder), combined type (ICD-10 - F90.2) 05/23/2025 Episodic mood disorder (ICD-10 - F39) 05/23/2025 Anxiety, generalized (ICD-10 - F41.1) Plan Of Treatment Next Appt Details Provider Name:Karlie payan, 07/15/2025 04:30:00 PM, [address] [place], [address], Progress Notes * MARLEN LEHMANB:1990 (34 yo F)Acc No.[id number]:05/23/2025 Behavioral Health Patient: MIKAEL GONZÁLES Provider: Coral Flores :1990 A ge:34 Y S ex:Female Date:05/23/2025 Address:[address] [place], [place] [id number] Subjective: * Chief Complaints: * 1 . Pt is a 34 year old female, MYKEL from [facility], 2 month f/u. 2. Pt states she is doing pretty good, stable. 3. LM. * HPI: C onstitutional: Pt is being seen today for follow up via in-office visit. Pt is tolerating meds well and taking medications daily. . Pt states she just came from er and had 4 kidney stones. . Pt is having more situational mood fluctuation. Energy and motivation are stable. Depressive symptoms are not persistent. Denies episodes of having sadness, anhedonia, isolating behaviors, and has had crying spells since January as her daughter turned 5 and starts kindergarten. Anxiety controlled. Concentration intact without distractibility. . Sleeping overall is good. D enies Nightmares. Appetite is ok. . Denies Euphoria. Pervasive irritability is controlled today. Meaningful relationships intact. Denies increased goal-oriented behavior or increase in purposeless activity. [place] [employer] . Denies suicidal or homicidal ideation or plan. No morbid thoughts. Interpersonal issues discussed. Support provided. Insight oriented/ Behavior modifying/ Supportive therapy . Plan:. * ROS: C ONSTITUTIONAL: No fever, chills, sweats, weakness; Kidney stones. SKIN: No jaundice, rash, lesions, petechiae GASTROINTESTINAL: No nausea, vomiting, diarrhea, or GI bleeding MUSCULOSKELETAL: No muscle pain or weakness NEUROLOGIC: No headache, dizziness, numbness, or weakness . * Medical History: * Medications: T aking Pepcid 20 MG Tablet 1 tablet at bedtime as needed Orally Once a day , Taking rOPINIRole HCl 4 MG Tablet 2 tabs 1-3 hours before bed Orally Once a day , Taking clonazePAM 0.5 MG Tablet 1 tablet at bedtime daily, may take 1 tab during day as needed for anxiety Orally as directed , Taking lamoTRIgine 200 MG Tablet TAKE 1 TABLET BY MOUTH EVERY DAY , Taking Propranolol HCl 60 MG Tablet 1 tablet Orally Twice a day As needed, Taking Amphetamine-Dextroamphet ER 20 MG Capsule Extended Release 24 Hour 1 capsule in the morning Orally Once a day , Not-Taking/PRN Lurasidone HCl 20 MG Tablet 1 tablet in the evening with food Orally Once a day , Not-Taking/PRN lamoTRIgine 25 MG Tablet 1 tab po daily x 2wks, then 1 twice daily x 2wks, then 2 AM and 1 PM x 2wks, then 2 twice daily x 2wks, monitor rash/fever Orally as directed , Medication List reviewed and reconciled with the patient Objective: * Vitals: H t: 67 in, Wt: 268.0 lbs, BMI:41.97Index, SaO2:98%, HR: 81 /min. k. Assessment: * Assessment: 1. A DHD (attention deficit hyperactivity disorder), combined type - F90.2 (Primary) 2 . E pisodic mood disorder - F39 3 . A nxiety, generalized - F41.1? Plan: * Treatment: * Images: * Electronic signature of BALAJI La on 05/30/2025 at 11:15 AM EDT Sign off status: Pending * Provider: Coral Flores Date: 0 05/23/2025 Generated for Jesus ortega/Diana/Keny on: 0 05/30/2025 11:15 AM EDT
[2025-05-30] VITALS (12 sets, daily range): BP systolic 101–128; BP diastolic 54–90; PULSE 67–86; TEMP 36.1–36.2; O2SAT 96–99; BMI 41.6
--- OUTSIDE RECORDS SUMMARY | 2025-05-30 11:15 | XMS_ITS | Continuity of Care Document ---
Author Name [facility] Organization [facility] Care Team Providers Care Gynaecological Oncologist Name Role Phone [facility] Unavailable Unavailable Problems [...] 1wk. If no improvement or worsening RTC. [facility] MENINGITIS BACTERIAL Active Condition [...] if no improvement or worsening of symptoms. [facility] ESOPHAGEAL REFLUX Active Condition [...] Vaccines Prophylactic Need Against Influenza Inactive Condition [facility] abdominal pain Active Condition [...] to schedule child to be seen by REGULATORY COORDINATOR for evaluation of possible ovarian cysts. DoD [...] Site Reaction Lot Number CVX Code Drug Hand Sizer Status Comments Source human papilloma virus vaccine, quadrivalent 1 2007 MUSTAPHA PABLO [id number] 62 Merck (MSD) complet ed human papilloma virus vaccine, quadrival ent DoD meningococcal polysaccharid e (groups A, C, Y and W-135) diphtheria toxoid conjugate vaccine (MCV4P) 1 2007 MUSTAPHA PABLO [id number] Sanofi Pasteur (PMC) complet ed meningoco ccal polysacch aride (groups A, C, Y and W-135) diphtheri a toxoid conjugate vaccine (MCV4P) DoD influenza virus vaccine, live, attenuated, for intranasal use 1 2006 LETTY HOLGUIN [id number] 111 [employer]. (MED) complet ed influenza virus vaccine, live, [...] Date DC Date Status Disposition Source LIDA Lovell([facility] ) OUTPATIENT [id number] corneal abrasio n MICHELLE OCONNOR 05/17 Released w/o Limitations LIDA Hsieh([facility]) Marco A [facility] LIDA Brooke([facility]) OUTPATIENT [id number] f/u corneal abrasio n chelsea LESTERASHERALBERT NAYAK A 05/19 Released w/o Limitations Marco A [facility] LIDA Lopes([facility]) Marco A [facility] LIDA Brooke([facility] Family Medicine [facility]) OUTPATIENT [id number] possibl e pink eye NUVIA RODAS 09/22 Released w/o Limitations Marco A [facility] LIDA Lopes([facility]) LIDA Lovell([facility]) OUTPATIENT [id number] SPORTS PHYSICA PREET BRAN 05/16 Released w/o Limitations Marco A [facility] LIDA Lopes([facility]) LIDA Lovell([facility]) OUTPATIENT [id number] Nausea dizzine ss x 3 days MELENDEZ, LAST BAINAN 08/10 Released w/o Limitations Marco A [facility]) LIDA Lovell([facility] Immuniz[facility] ions) OUTPATIENT [id number] FLU MIST LETTY HOLGUIN 08/10 Released w/o Limitations Marco A [facility] LIDA Lopes([facility] ations) LIDA Lovell([facility]) OUTPATIENT [id number] Per provide r f/u on stomach problem s MELENDEZ, LAST PURA 09/13 Released w/o Limitations Marco A [facility] LIDA Lopes([facility]) Marco A [facility] LIDA Brooke([facility]) OUTPATIENT [id number] f/u for medicat ion MELENDEZ, LAST BAINAN 11/28 Released w/o Limitations Marco A [facility] LIDA Lopes([facility]) Marco A [facility] LIDA Brooke([facility]) OUTPATIENT [id number] F/U PER PROVIDE R STOMACH PROBLEM S LAST MELENDEZ PURA 12/31 Released w/o Limitations LIDA Hsieh([facility]) LIDA Lvoell([facility]) TELE CONSULT [id number] Rash behind left ear x 3 days. LETTY HOLGUIN Mildred 01/19 LIDA Hsieh([facility]) LIDA Lovell([facility]) OUTPATIENT [id number] rash behind ear x 1 month LAST MELENDEZAN 01/22 Released w/o Limitations LIDA Hsieh([facility]) Procedures Combined list of: 1) Procedures from Department of Veterans Affairs facilities going back up to thelast 18 months, not all VA non-surgical procedures are included; 2) All procedures from the Department of Defense facilities. Procedure Procedure Type Code Date Perfomer Comments [facility] e MENINGOCOCCAL CONJUGATE VACCINE, SEROGROUPS A, C, W, Y, QUADRIVALENT, DIPHTHERIA TOXOID CARRIER (MENACWY-D) OR HDN547 CARRIER (MENACWY-CRM), FOR INTRAMUSCULAR USE 8 [facility] IMMUNIZATION ADMINISTRATION BY INTRANASAL OR ORAL ROUTE; 1 VACCINE (SINGLE OR COMBINATION VACCINE/TOXOID) 7 [facility] OPHTHALMOLOGICAL SERVICES: MEDICAL EXAMINATION AND EVALUATION, WITH INITIATION OR CONTINUATION OF DIAGNOSTIC AND TREATMENT PROGRAM; INTERMEDIATE, ESTABLISHED PATIENT 5 [facility] UNLISTED OPHTHALMOLOGICAL SERVICE OR PROCEDURE 5 [facility] COLLECTION OF VENOUS BLOOD [...] Vaccine, Quadrivalent Human Papilloma Virus Vaccine, Quadrivalent 93667 8 MELENDEZ, GASTON PURA [facility] Supervised Injection Intramuscular Supervised Injection Intramuscular 55288 8 MELENDEZ, LAST NEVES [facility] Immunization Administration One Vaccine Immunization Administration One Vaccine 15960 8 MELENDEZ, [facility] Influenza Virus Vaccine Live Intranasal [address] [facility] Ophthalmological Prior Patient Start Intermediate Level Care Ophthalmological Prior Patient Start Intermediate Level Care [address] [facility] Ophthalmological Prior Patient Start Intermediate Level Care Ophthalmological Prior Patient Start Intermediate Level Care [address] [facility] Ophthalmological Procedures Ophthalmological Procedures [address] [facility] Social History Combined list of available smoking, tobacco, and other social history from Department of Defense and Veterans Affairs facilities. Social History Type Response Date Comment Sour e This section is an empty social history section. DoD
--- OUTSIDE RECORDS SUMMARY | 2025-05-30 11:16 | XMS_ITS | Encounter Summary ---
Author Organization [facility] Address [address] [place] [address] Care Team Providers Care Expert Witness Name Role Phone Sathya Herron MD Primary Care Provider [phone] Encounter Details Date Type Department Care Team (Late st Contact Info) Description 06/17/2023 External Result Encounter [facility] External Department Unsolicited Horacio Ferro, DO [address] [place] [address] Social History Tobacco Use Types Packs/Day Years [...] Darion Randle M.D.06/17/2023 3:29 PM Dictation Location: [place] [address] Transcribed By: [facility] 06/17/23 1529 Dictated By: Darion Randle II, MD 06/17/23 1516 Signed By: <Electronically signed by Darion Randle II, MD in OV> 06/17/23 1529 Narrative 09/07/2023 9:27 AM [facility] [place] [address] [place] [address] CT Scan Report Signed Patient: Kaylah Mario MR#: [id number] 41 : 1990 Acct:[id number] Age/Sex: 32 / F ADM Date: 06/17/23 Loc: CT Room: Type: [facility] Attending Dr: Horacio Ferro DO Copies to: [...] con Procedure Note Radiology, Radiologist, - 09/07/2023 [facility] [place] [address] [place] [address] CT Scan Report Signed Patient: Kaylah Mario CMR#: [id number] 41 : 1990Acct:[id number] Age/Sex: FADM Date: 06/17/23 Loc: CT Room:Type: [facility] Attending Dr: Horacio Ferro DO Copies to: [...] Darion Randle M.D.06/17/2023 3:29 PM Dictation Location: [place] [address] Transcribed By: [facility] 06/17/23 1529 Dictated By: Darion Randle II, MD 06/17/23 1516 Signed By: <Electronically signed by Darion Randle II, MD inOV> 06/17/23 1529 Horacio Ferro DO IMG CT PROCEDURES Final Res ult documented in this encounter Visit Diagnoses Not on filedocumented in this encounter Care Teams Expert Witness Relationship Specialty Start Date End Date Sathya Herron MD [address] [place] [address] [place] [address] PCP - General Family Medicine 06/10/23 documented as of this encounter
--- OUTSIDE RECORDS SUMMARY | 2025-05-30 11:16 | XMS_ITS | Patient Health Record ---
Author Organization [facility] Address [address] [place] [address] Care Team Providers Care Site Administrator Name Role Phone Karlie Flores Primary Care Provider Cass Gallahger Unavailable [phone] Alejandra Mathews Unavailable [phone] Allergies Allergen (clinical drug ingredient) Drug/Non Drug [...] TH EVERY DAY; Duration: 30 days Active clonazePAM 0.5 MG 1 tablet at bedtime daily, may take 1 tab during day as needed for anxiety Orally as directed; Duration: 30 days 02/28/2025 Active rOPINIRole HCl 4 MG 2 tabs 1-3 hours bef ore bed Orally Once a day Active Pepcid 20 MG 1 tablet at bedtime as needed Orally Once a day Active Social History Tobacco Use: Social History [...] Risk Notes Problem Attention deficit hyperactivity disorder (542840323) ADHD (attention deficit hyperactivity disorder), combined type (F90.2) Active confirmed Problem Episodic mood disorder (63730222364127) Episodic mood disorder (F39) Active confirmed Problem Generalized anxiety disorder (94642978) Anxiety, generalized (F41.1) Active confirmed Vital Signs Heart Rate 81 /min 05/23/2025 k Blood pressure diastolic 87 mm Hg 03/20/2025 Oximetry 98 % 05/23/2025 k Height 67 in 05/23/2025 k Blood pressure systolic 142 mm Hg 03/20/2025 Weight 268.0 lbs 05/23/2025 k BMI 41.97 kg/m2 05/23/2025 k Encounters Encounter Location Date Provider Diagnosis [facility] [address] [place] [address] 06/07/2024 Cass Gallagher Anxiety, generalized F41.1 [facility] [address] [place] [address] 09/12/2024 Alejandra Mathews Anxiety, generalized F41.1 [facility] [address] [place] [address] 02/28/2025 Alejandra Mathews ADHD (attention deficit hyperactivity disorder), combined type F90.2 ; Episodic mood disorder F39 and Anxiety, generalized F41.1 [facility] [address] [place] [address] 05/13/2025 Alejandra Mathews ADHD (attention deficit hyperactivity disorder), combined type F90.2 [place] [address] [place] [address] 05/23/2025 Karlie Flores ADHD (attention deficit hyperactivity disorder), combined type F90.2 ; Episodic mood disorder F39 and Anxiety, generalized F41.1 [place] [address] [place] [address] 10/02/2024 Alejandra Mathews Episodic mood disord er F39 and Anxiety, generalized F41.1 [facility] [address] [place] [address] 03/20/2025 Alejandra Mathews Episodic mood disord er F39 ; Anxiety, generalized F41.1 and ADHD (attention deficit hyperactivity disorder), combined type F90.2 [facility] [address] [place] [address] 09/14/2024 Alejandra Mathews Episodic mood disord er F39 and Anxiety, generalized F41.1 [facility] [address] [place] [address] 12/27/2024 Alejandra Mathews Episodic mood disord er F39 ; Anxiety, generalized F41.1 ; Medication management Z79.899 and ADHD (attention deficit hyperactivity disorder), combined type F90.2 [facility] [address] [place] [address] 01/24/2025 Alejandra Mathews Episodic mood disord er [...] to the start/continuation of the treatment. 03/20/2025 Anxiety, generalized (ICD-10 - F41.1) 05/13/2025 ADHD (attention deficit hyperactivity disorder), combined type (ICD-10 - F90.2) 05/23/2025 ADHD (attention deficit hyperactivity disorder), combined type (ICD-10 - F90.2) 02/28/2025 ADHD (attention deficit hyperactivity disorder), combined type (ICD-10 - F90.2) 12/27/2024 Anxiety, generalized (ICD-10 - F41.1) 01/24/2025 ADHD (attention deficit hyperactivity disorder), combined [...] to the patient/guardian. . OARRS reviewed . 10/02/2024 Anxiety, generalized (ICD-10 - F41.1) . [...] for any concerns about your medications. . 09/14/2024 Anxiety, generalized (ICD-10 - F41.1) . [...] . 06/07/2024 Anxiety, generalized (ICD-10 - F41.1) 09/12/2024 Anxiety, generalized (ICD-10 - F41.1) 01/24/2025 Anxiety, generalized (ICD-10 - F41.1) . [...] for any concerns about your medications. . 02/28/2025 Episodic mood disorder (ICD-10 - F39) 03/20/2025 ADHD (attention deficit hyperactivity disorder), combined [...] to the patient/guardian. . OARRS reviewed . 05/23/2025 Episodic mood disorder (ICD-10 - F39) 05/23/2025 Anxiety, generalized (ICD-10 - F41.1) 02/28/2025 Anxiety, generalized (ICD-10 - F41.1) 12/27/2024 [...] to the patient/guardian. . OARRS reviewed . 12/27/2024 Medication management (ICD-10 - Z79.899) Plan Of Treatment Pending Test Test Name Order Date Comprehensive Metabolic Panel 12/27/2024 Comprehensive Metabolic Panel 03/20/2025 Thyroid Profile II 03/20/2025 Thyroid Profile II 12/27/2024 Complete Blood Count Auto Diff 5 Complete Blood Count Auto Diff 5 Vitamin D 25 (OH), D2+D3 03/20/2025 Vitamin D 25 (OH), D2+D3 12/27/2024 Next Appt Details Provider Name:Karlie Coral [place] artem, 07/15/2025 04:30:00 PM, [address] [place], [address], Insurance Providers Payer Name Payer Address Payer Phone Subscriber Number Group Number Insured Name Patient Relationship to Insured Coverage Start Date Coverage End Date Slated [address] [place] [address] [phone] [id number] DOMINIK MIKAEL Self - patient is the insured 4 [employer] [address] [place] [address] [id number] MIKAEL LEHMAN Self - patient is the insured 2 3 Medical (General) History Medical History History ICD Code anxiety restless leg syndrome ADHD Surgical History Surgery Date(Month/Year) colonoscopy esophagogastroduodenoscopy (EGD) wisdom teeth lithotripsy urethral stricture
--- OUTSIDE RECORDS SUMMARY | 2025-05-30 11:16 | XMS_ITS | Clinical Summary ---
Author Organization [facility] Address [address] [facility] [place] [address] Care Team Providers Care Sales Development Director Name Role Phone Unavailable Primary Care Provider Unavailabl e Source Comments The following information is NOT included in Care Everywhere downloads:Psychiatric notes, ECG results, Cardiac Rehab notes, Pulmonary Function notes, data from [facility] (includes but not limited toPregnancy data,audiograms, eye exams, pre-surgical evaluation notes, well-child exam data).[facility] Allergies Active Allergy Reactions Criticality Noted Date Comments Sulfa Antibiotics Hives High 03/22/2019 Medications Topiramate (TOPAMAX ORAL) Take by mouth. Active Loratadine (CLARITIN) 10 MG CAPSIndications: Rash and other nonspecific skin eruption Take 10 mg by mouth daily. 30 Capsule 9 Active triamcinolone 0.1 % ointmentIndicati ons:Rash and other nonspecific skin eruption Apply topically 2 times daily. Apply thin layer to affected area. 1 Tube 1 9 Active rOPINIRole (REQUIP) 0.25 MG tablet TAKE 1 TABLET BY MOUTH 1 TO 3 HOURS BEFORE BEDTIME 3 9 Active Active Problems No known active problems Immunizations Immunization Administration Dates Next Due Hep A (peds/adol, 2 dose) (CVX=83) 03/17/2016 Influenza, injectable, quadr ivalent, preservative free (CSS=253) 06/04/2019,06/07/2016 Influenza, injectable, triva lent, preservative (GXR=828) 06/13/2019,07/07/2017,10/15/2014 Meningococcal conjugate (MCV 4,Men-ACWY), Menactra (MCV4P) (JSW=217) 10/23/2010 Tdap (FIU=358) 01/08/2020 Social History Tobacco Use Types Packs/Day Years Used Date Smoking Tobacco: Never Smokeless Tobacco: Never Comments No Sex and Gender Information Value Date Recorded Sex Assigned at Not on file Legal Sex Female 7:02 PM EDT Gender Identity Not on file Sexual Orientation Not on file Last Filed Vital Signs Vital Sign Reading Time Taken Comments Blood Pressure 121/73 03/22/2019 7:13 PM EDT Pulse 102 03/22/2019 7:13 PM EDT Temperature 36.6 C (97.8 F) 03/22/2019 7:13 PM EDT Respiratory Rate 20 03/22/2019 7:13 PM EDT Oxygen Saturation 100% 03/22/2019 7:13 PM EDT Inhaled Oxygen Concentration - - Weight - - Height - - Body Mass Index - - Plan of Treatment Health Maintenance Due Date Last Done Comments HIV Test 2006 Hepatitis C Antibody 2009 Hepatitis A (HAV) Vaccine (1 of 2 - Risk 2-dose series) 2010 03/17/2016 Hepatitis B (HBV) Vaccine (1 of 3 - 19+ 3-dose series) 2010 Pap Smear 2012 HPV Vaccine (optional start 27-45 years) 2018 COVID-19 Vaccine ( - 2023- season) 2024 08/22/2021, 07/24/2021 Influenza Vaccine (#1) 2025 9, 06/04/2019, 07/07/2017, Additional history exists Tetanus (Td or Tdap) Booster 01/07/2030 01/08/2020 Shingles (RZV) Vaccine (1 of 2) 2041 Tdap Booster Completed 01/08/2020 Mammography Discontinued Pneumococcal Vaccine(s) Aged Out No l onger eligible based on patient's age to complete this topic Insurance [employer] - HMO/PPO/POS Member Subscriber Plan / Payer (Ef fective 2018-Present) Name:Kaylah Mario Relation to Subscriber:Spouse Name:BETTE MARIO Date of :1991 (Home) Address: [address] [place] [address] Payer ID:[id number] (NAIC) Type:[facility] Address: [facility] [address] [place] [phone]
--- OUTSIDE RECORDS SUMMARY | 2025-05-30 11:16 | XMS_ITS | Clinical Summary ---
Author Organization [email or web address] [facility] [facility] [employer] Address [id number] [address] [place] [address] Care Team Providers Care Spectrograph Operator Name Role Phone Sathya Herron DO Primary Care Provider [phone] Allergies Active Allergy Reactions Criticality Noted Date Comments Adhesive Tape-Silicones 10/15/2019 Sulfa (Sulfonamide Antibiotics) 10/03 Medications FLUoxetine (PROzac) 20 mg capsule Take 20 mg by mouth daily. Active aspirin 81 mg Take 81 mg by mouth daily. Active [id number] AC-DHA ORAL Take 1 tablet by mouth. [...] Not on file Insurance [employer] Care Teams Spectrograph Operator Relationship Specialty Start Date End Date Sathya Herron DO [address] [place] [address] [place] [address] PCP - General Family Medicine 11/22/19
--- OUTSIDE RECORDS SUMMARY | 2025-05-30 11:16 | XMS_ITS | Clinical Summary ---
Author Organization [facility] Healthcare Address [address] [place] [address] Care Team Providers Care Brick Paving Checker Name Role Phone Sathya Herron MD Primary Care Provider [phone] Allergies Active Allergy Reactions Criticality Noted Date Comments Nickel Rash Low 10/15/2014 Sulfa Antibiotics Swelling 06/14/2023 Wound Dressing Adhesive Rash Low 06/14/2023 Medications Xanax 0.25 MG tablet 1 tablet Orally as needed Active famotidine (Pepcid) 20 MG tablet Take 20 mg by mouth in the morning and 20 mg before bedtime. Active Vyvanse 70 MG capsule TAKE 1 CAPSULE BY MOUTH EVERY DAY IN THE MORNING FOR 30 DAYS DNF 05/03/23 05/16/2023 Active lamoTRIgine (LaMICtal) 25 MG tablet 1 tab po daily x 2wks, then 1 twice daily x 2wks, then 2 AM and 1 PM x 2wks, then 2 twice daily x 2wks, monitor rash/fever Orally as directed 11/14/2023 Active propranolol (Inderal) 40 MG tablet TAKE 1/2- 1 TABLET TWICE A DAY NEEDED FOR ANXIETY for 90 Active QUEtiapine (SEROquel) 25 MG tablet 1 (one) time each day at the same time 10/27/2023 Active rOPINIRole (Requip) 4 MG tabletIndicatio ns:RLS (restless legs syndrome) TAKE 2 TABLETS BY MOUTH DAILY AT BEDTIME 180 tablet 3 01/02/2025 Active magnesium oxide (Mag-Ox) 400 MG tabletIndicatio ns:RLS (restless legs syndrome) TAKE 1 TABLET BY MOUTH EVERY DAY 30 tablet 11 02/19/2025 Active Active Problems Problem Noted Date Diagnosed Date Sinus tachycardia 02/01/2024 38 weeks gestation of ([facility] 2023 Resolved Problems Problem Noted Date Diagnosed Date Resolved Date Anxiety 06/14/2023 06/14/2023 Fibrocystic breast disease (FCBD) 06/14/2023 06/14/2023 Menorrhagia with regular cycle 06/14/2023 06/14/2023 Missed period 06/14/2023 06/14/2023 Pes planovalgus 06/14/2023 06/14/2023 Pseudotumor cerebri 06/14/2023 06/14/20 Restless legs syndrome 06/14/202306/14 Immunizations Immunization Administration Dates Next Due Hep A, ped/adol, 2 dose 03/17/2016 Influenza, injectable, quadr ivalent, preservative free 06/04/2019,07/20/2018,06/07/2016 Influenza, seasonal, injectable 06/13/2019,07/07,10/15/2014 Meningococcal MCV4P 10/23/2010 Pneumococcal Polysaccharide PPSV23 04/28/2023 Tdap 01/08/2020 Family History Medical History Relation Name Comments Heart disease Maternal Grandfather Hypertension Maternal Grandfather Heart disease Maternal Grandmother Hypertension Maternal Grandmother Stroke Maternal Grandmother Hyperlipidemia Mother Hypertension Mother Migraines Mother Hypertension Paternal Grandfather Hyperthyroidism Paternal Grandfather Relation Name Status Comments Father Alive Maternal Grandfather Alive Maternal Grandmother Alive Mother Alive Paternal Grandfather Alive Paternal Grandmother Alive Social History Tobacco Use Types Packs/Day Years Used Date Smoking Tobacco: Never Smokeless Tobacco: Never Tobacco Cessation:Counseling Given: Yes Alcohol Use Standard Drinks/Week Comments Yes 1 (1 standard drink = 0.6 oz pure alcohol) caffeine: 1-2 cups per day coffee, soda AUDIT-C Answer Date Recorded Q1: How often do you have a drink containing alc ohol? Monthly or less 12/01/2023 Q2: How many drinks containi ng alcohol do you have on a typical day when you are drinking? 1 or 2 12/01/2023 Q3: How often do you have si x or more drinks on one occasion? Less than monthly 12/01/2023 PHQ-2 Answer Date Recorded Patient Health Questionnaire-2 Score 0 12/01/2023 Comments No Sex and Gender Information Value Date Recorded Sex Assigned at Not on file Legal Sex Female 7:05 PM EDT Gender Identity Not on file Sexual Orientation Not on file Last Filed Vital Signs Vital Sign Reading Time Taken Comments Blood Pressure 139/89 02/01/2024 9:45 AM EDT Pulse 78 02/01/2024 9:45 AM EDT Temperature - - Respiratory Rate - - Oxygen Saturation - - Inhaled Oxygen Concentration - - Weight 130 kg (287 lb) 02/01/2024 9:45 AM EDT Height 170.2 cm (5' 7 ) 02/01/2024 9:45 AM EDT Body Mass Index 44.95 02/01/2024 9:45 AM EDT Plan of Treatment Health Maintenance Due Date Last Done Comments Influenza Vaccine (#1) 2025 3, 06/13/2019, 06/04/2019, Additional history exists Pap Smear 11/30/2026 12/01/2023 Cervical Cancer Screening 11/30/2028 HPV/Cotest 11/30/2028 12/01/2023, 10/04, 04/17/2021, Additional history exists Procedures Procedure Name Priority Date/Time Associated Diagnosis Comments THINPREP TIS PAP AND HPV MRNA E6/E7 Routine 12/01/2023 10:25 AM EST Encounter for gynecological examination without abnormal finding Screening for malignant neoplasm of cervix from Last 3 Months or Most Recently Relevant to Health Maintenance Results * THINPREP TIS PAP AND HPV MRNA E6/E7 (12/01/2023 10:25 AM EST) CLINICAL INFORMATION [facility] Comment:None given LMP [facility] Comment:NONE GIVEN PREV. PAP [facility] Comment:NONE GIVEN PREV. BX [facility] Comment:NONE GIVEN SOURCE [facility] Comment:None given STATEMENT OF ADEQUACY [facility] Comment: Satisfactory for evaluation. Endocervical/transformation zone component present. INTERPRETATION/RESU LT [facility] Comment: Cytology Results: Negative for intraepithelial lesion or malignancy. COMMENT [facility] Comment: This Pap test has been evaluated with computer assisted technology. DRUG SAFETY PHYSICIAN [facility] Comment: CMB, CT(ASCP) CT Screening Location: [place] [address] (ALWAYS MESSAGE) [facility] Comment: EXPLANATORY NOTE: The Pap is a screening test for cervical cancer. It is not a diagnostic test and is subject to false negative and false positive results. It is most reliable when a satisfactory sample, regularly obtained, is submitted with relevant clinical findings and history, and when the Pap result is evaluated along with historic and current clinical information. HPV MRNA E6/E7 Not Detected Not Detected [facility] Comment: Methodology: Assistant At Surgery-Mediated Amplification This assay detects E6/E7 viral messenger RNA (mRNA) from 14 high-risk HPV types (16,18,31,33,35,39,45,51,52,56,58,59,66,68). Cervical sources are required for HPV testing. If a vaginal source from a patient who has had a total hysterectomy with removal of cervix was submitted, please contact the testing laboratory for alternative testing options. For additional information, please refer to http://education.[employer]/faq/RKR522e7 (This link if provided for information/ educational purposes only.) Swab 12/01/2023 10:2 5 AM EST 12/02/2023 3:12 AM EST Narrative Resulting Agency Comment Performing Organization Information Site ID: [id number] Name: [facility] Address: [address] [place] [address], [address] [place] [phone] Director: Bin Aragon MD us Nir Rodrigues MD LAB CYTOLOGY ORDERABLES Final Result [facility] from Last 3 Months or Most Recently Relevant to Health Maintenance Insurance [facility] Care Teams Brick Paving Checker Relationship Specialty Start Date End Date Sathya Herron MD [address] [place] [address] [place] [address] PCP - General Family Medicine 06/10/23
--- OUTSIDE RECORDS SUMMARY | 2025-05-30 11:16 | XMS_ITS | Encounter Summary ---
Author Organization [facility] Address [address] [facility] [place] [address] Care Team Providers Care Multiple Drill Operator Name Role Phone Sathya Herron MD Primary Care Provider [phone] Encounter Details Date Type Department Care Team (Late st Contact Info) Description 06/14/2023 Abstract [facility] [address] [place] [id number] Horacio Ferro DO [address] [facility] [place] [address] Social History Tobacco Use Types Packs/Day Years [...] on filedocumented in this encounter Care Teams Multiple Drill Operator Relationship Specialty Start Date End Date Sathya Herron MD [address] [place], [place] [id number] PCP - General Family Medicine 06/10/23 documented as of this encounter
--- NOTE | 2025-05-30 11:30 | XR_ITS ---
The [address] [address] Patient Name: MIKAEL LEHMAN MRN: [id number] date: 1990 Sex: F Assigned Patient Location: [facility] Current Patient Location: Accession/Order Number: [id number] Exam Date: 05/30/2025 11:23 Report Date: 05/31/2025 00:25 At the request of: ALLI OCAMPO MD Procedure: XR abdomen 1V XR abdomen 1V 05/30/2025 11:27 AM SIGNS AND SYMPTOMS: ^kidney stones \S.br\ PROTOCOL: Frontal radiograph of the abdomen COMPARISON: 05/13/2025 FINDINGS: Bilateral radiodense renal stones are noted measuring 6 mm in greatest dimension on the left and 5 mm in greatest dimension the right. This is similar to the prior exam. There is a nonobstructive bowel gas pattern. Degenerative changes are noted in the sacroiliac joints. XR/XR abdomen 1V IMPRESSION: Bilateral radiodense renal stones are noted measuring 6 mm in greatest dimension on the left and 5 mm in greatest dimension the right. Impression dictated by: Darion Randle M.D. 05/31/2025 12:25 AM Dictation Location: [place] [address] Electronically authenticated by: [id number] Y Date: 05/31/2025 00:25
[2025-05-30] MEDS: CEFAZOLIN SODIUM 2 GM/50 ML D5W PREMIX IV (12:11)
--- NOTE | 2025-05-30 13:06 | PM.URSON ---
Urology Surgery Operative Note Operative Note Procedure Date: 05/30/25 Time Out Performed: yes Pre-op Diagnosis: Left ureterolithiasis and left nephrolithiasis Post-op Diagnosis: same as pre-op Procedures performed: 1. Left ESWL. Anesthesia: General-LMA Primary Surgeon: Houston Galicia Complications: None Estimated blood loss (mL): 0 Findings: Dense left kidney stone Specimens: None Drains: None Indications for Procedures: This lady has a small left renal stone and a partially obstructing 6 mm left proximal ureteral stone. She now presents for left ESWL and possible ureteroscopic laser lithotripsy and stent placement. She has signed an informed consent after risks were explained. Some of these risks include bleeding, perinephric hematoma, infection and anesthesia to name a few Detailed description of Procedure: The patient was brought to the Operating Room and placed on Siemens electromagnetic lithotripsy treatment table in the supine position. SCDs were placed on their lower extremities and turned on and functioning during the entire case. Timeout was done by all parties in the room. We all agreed upon the patient's identification and the planned procedures for this patient. General Anesthesia was then administered via LMA. Treatment head was then brought to the patient's correct side. While using flourscopy the left ureteral stone was identified and lined up into the crosshairs. We could see that the left renal stone should be within the blast path. We then began applying shocks. I started at a power level 2.0 and increased to a maximum power level of 3.5. Intermittent fluoroscopy revealed that the ureteral stone steadily fragmented. There was a spreading out effect. We applied a total of 3000 shocks. Our last fluoroscopic image revealed no evidence of any formed stone remaining within the ureter. The renal stone although it was within the blast path, did not fragment entirely. The procedure was then ended. I elected not to do any ureteroscopy. She was then transferred to a [facility] bed and wheeled to PACU in stable condition.
--- NOTE | 2025-05-30 13:41 | PC.NURSE ---
patient has redness on left flank from shock wave therapy
== END 2025-05-30 14:41 | disposition home or self-care (01) ==
LOC: SURGOUT 11:14
PROVIDERS: Anesthesiology; PCP Family Medicine; Visit Provider Urology
PROC: (CPT 873; principal; 2025-05-30 12:50)
DX: N13.2 Hydronephrosis with renal and ureteral calculous obstruction (principal); G47.33 Obstructive sleep apnea (adult) (pediatric); K21.9 Gastro-esophageal reflux disease without esophagitis; G25.81 Restless legs syndrome; G93.2 Benign intracranial hypertension; E66.01 Morbid (severe) obesity due to excess calories; Z68.41 Body mass index [BMI] 40.0-44.9, adult; F41.9 Anxiety disorder, unspecified; F32.A Depression, unspecified
CPT/HCPCS: 50590; 36415; 74018; 84703; J0131; J0690; J1100; J1885; J2250; J2405; J2704; J3010